=== PATIENT | male | born 1940 | race Caucasian/White ===

== ENCOUNTER 2016-10-20 20:15 | Emergency (ER) | payer MEDICARE ==
[2016-10-20] MEDS ORDERED: TETANUS/DIPHTHERIA/PERTUSSIS 0.5 ML SYRINGE IM ONE ×3 (22:28→22:40)
[2016-10-20 23:20] VITALS: BP 194/88
--- NOTE | 2016-10-20 23:40 | CT Preliminary Report ---
Exam: CT Facial Bones W/O IMPRESSION: No evidence of maxillofacial fracture. [facility] SITE ID: [id number]
--- NOTE | 2016-10-20 23:42 | CT Report ---
EXAM: CT MAXILLOFACIAL WITHOUT CONTRAST EXAM DATE: 10/20/2016 11:01 PM. CLINICAL HISTORY: Right mandibular injury. COMPARISONS: None. TECHNIQUE: Thin-section axial images were acquired of the face without contrast. Post-processing: Cor onal and sagittal reformats. Other: None. In accordance with CT protocol optimization, one or more of the following dose reduction techniques w ere utilized for this exam: automated exposure control, adjustment of mA and/or KV based on patient s ize, or use of iterative reconstructive technique. FINDINGS: Bones: No fracture or bone lesion. Temporomandibular Joints: The temporomandibular joints are symmetric and normally located. Sinuses: Normal. No mucosal thickening or fluid levels. Other: There are vascular calcifications. Patient is edentulous. There is left frontal scalp soft tis greg thickening.. IMPRESSION: No evidence of maxillofacial fracture. [facility] Referring Provider Line: [phone] SITE ID: [id number]
--- NOTE | 2016-10-20 23:45 | ED Physician Documentation ---
PD HPI Fall - Stated complaint Stated Complaint: LAC TO FOREHEAD - Chief complaint Chief Complaint: Trauma Hd/Nk - History obtained from History obtained from: Patient, Family - History of Present Illness Mechanism of injury: Other (Fell from ladder.) Fall distance: 5 to 10ft Where injury occurred: Home Timing - onset: How many minutes ago (Just prior to arrival.) Injury(ies) location: Head, Face Associated symptoms: No: LOC, Neck pain, Weakness, Paresthesias, Nausea / vomiting Similar symptoms before: Has not had sx before - Additional information Additional information: The patient is a 76-year-old male who fell about 8 feet off of a ladder, hitting his head on lumber. He denies loss of consciousness and has been ambulatory since the incident occurred. He denies nausea, vomiting, difficulty breathing, or neck pain. He presents with a scalp laceration and pain in his right mandibular region. He is uncertain of his tetanus status. Review of Systems Constitutional: denies: Fever Eyes: denies: Decreased vision Ears: denies: Tinnitus/ringing Nose: denies: Congestion Throat: reports: Other (Right mandibular pain.) Cardiac: denies: Chest pain / pressure Respiratory: denies: Dyspnea GI: denies: Abdominal Pain, Nausea, Vomiting : denies: Dysuria, Incontinent Skin: reports: Abrasion (s), Laceration (s). denies: Rash Musculoskeletal: denies: Neck pain, Back pain, Extremity pain Neurologic: reports: Head injury. denies: Focal weakness, Numbness, Headache, LOC PD PAST MEDICAL HISTORY - Past Medical History Past Medical History: Yes Cardiovascular: Hypertension Endocrine/Autoimmune: Type 2 diabetes - Past Surgical History Past Surgical History: No - Present Medications Home Medications: Ambulatory Orders Medication Instructions Recorded Confirmed HYDROcod/ACETAM 5/325 [[place] 5/325] 1 - 2 ea PO Q6H PRN #15 tablet 10/20/16 Hydrocodone/Acetaminophen 1 each PO TID 10/20/16 10/20/16 [Hydrocodone-APAP 5-300] Multivitamin [Multivitamins] 1 tab PO DAILY 10/20/16 10/20/16 Pravastatin [Pravachol] 0 mg PO DAILY 10/20/16 10/20/16 Propranolol [Inderal] mg PO 10/20/16 metFORMIN [Glucophage] mg PO BID 10/20/16 - Allergies Allergies/Adverse Reactions: Allergies Allergy/AdvReac Type Severity Reaction Status Date / Time No Known Drug Allergies Allergy Verified 10/20/16 20:27 - Social History Does the pt smoke?: No Smoking Status: Never smoker Does the pt drink ETOH?: No Does the pt have substance abuse?: No PD ED PE NORMAL - Vitals Vital signs reviewed: Yes (hypertensive) - General General: Alert and oriented X 3, Well developed/nourished - HEENT HEENT: PERRL, EOMI, Ears normal, Other (There is a 4 cm laceration at the left frontal scalp extending to the forehead. There is no bony step-off palpated. There is also right facial swelling and abrasion over the temporomandibular region. There is no dental tenderness to palpation.) - Neck Neck: No bony TTP, No JVD, Other (Cervical range of motion is intact, without tenderness.) - Cardiac Cardiac: RRR, No murmur - Respiratory Respiratory: No respiratory distress, Clear bilaterally, Other (No chest wall tenderness to palpation.) - Abdomen Abdomen: Soft, Non tender - Back Back: No spinal TTP - Derm Derm: No rash - Extremities Extremities: No tenderness to palpate, Normal ROM s pain - Neuro Neuro: Alert and oriented X 3, No motor deficit, No sensory deficit, Normal speech Results - Vitals Vitals: Vital Signs - 24 hr 10/20/16 10/20/16 10/20/16 20:23 22:19 22:26 Temperature 36.6 C 36.9 C Heart Rate 74 77 73 Respiratory 16 16 16 Rate Blood Pressure 225/103 H 195/92 H 190/96 H O2 Saturation 99 100 100 10/20/16 23:19 Temperature 36.9 C Heart Rate 69 Respiratory 15 Rate Blood Pressure 194/88 H O2 Saturation 99 Oxygen O2 Source Room air - Rads (name of study) CT facial bones (Mandible) Radiology: Prelim report reviewed, EMP read contemporaneously, See rad report ( No evidence of maxillofacial fracture.) Procedures - Laceration (location) Frontal scalp Length in cm: 4 Wound type: Linear Neurovascular status: Sensory intact, Vascular intact Anesthesia: Lidocaine 2% with epi Wound Preparation: Hibiclens, Irrigated copiously NS, Wound explored, To the base. No: FB identified Skin layer closure: [place] (7) Other: Patient tolerated well, No complications, Neurovascular intact, Dressing applied, Tetanus booster given Complexity: Simple PD MEDICAL DECISION MAKING - ED course Complexity details: reviewed results, re-evaluated patient, considered differential, d/w patient, d/w family ED course: The patient's presentation is significant for a fall off a ladder, with associated scalp laceration and facial contusion. CT scan of the facial bones, particularly the mandible, reveals no bony abnormality. The patient requested that head CT not be performed unless absolutely indicated. Since he had no loss of consciousness, and is not on anticoagulant medication, and denies headache or nausea, I felt it would be reasonable to not perform the head CT, but discussed with the patient and his family clinical signs or symptoms that should prompt reconsideration. Treatment in the emergency department included administration of tetanus booster. The scalp wound was thoroughly cleaned after administration of local anesthetic. It was repaired with priscilla. I discussed with the patient and his family appropriate wound care, timing for staple removal, as well as potentially worrisome signs or symptoms that should prompt reevaluation in the emergency department. He is being discharged with prescription for Vicodin, 15 tablets. Departure - Departure Disposition: 01 Home, Self Care Clinical Impression: Fall from ladder Qualifiers: Encounter type: initial encounter Qualified Code(s): W11.XXXA - Fall on and from ladder, initial encounter Scalp laceration Qualifiers: Encounter type: initial encounter Qualified Code(s): S01.01XA - Laceration without foreign body of scalp, initial encounter Contusion of mandibular joint area Qualifiers: Encounter type: initial encounter Qualified Code(s): S00.83XA - Contusion of other part of head, initial encounter Hypertension Qualifiers: Hypertension type: unspecified Qualified Code(s): I10 - Essential (primary) hypertension Condition: Stable Instructions: ED Head Injury Closed, ED Laceration Scalp Stitch Or Stap, ED Contusion Face Follow-Up: Olivia Ashley PA-C [Primary Care Provider] - Prescriptions: HYDROcod/ACETAM 5/325 [[place] 5/325] 1 - 2 ea PO Q6H PRN #15 tablet PRN Reason: Pain Comments: Apply ice pack to the sore areas intermittently for the next 4 days. Keep the wound clean, and apply antibiotic ointment daily. You can use ibuprofen, up to 800 mg 3 times daily if needed for pain. Follow-up for removal of priscilla in about 12 days. Return to the emergency department if you develop increasing headache, persistent vomiting, or otherwise worsening symptoms. Discharge Date/Time: 10/20/16 23:59
== END 2016-10-20 23:59 | disposition home or self-care (01) ==
LOC: ED 20:15
DX: S01.01XA Laceration without foreign body of scalp, initial encounter (principal); W11.XXXA Fall on and from ladder, initial encounter; Y92.019 Unspecified place in single-family (private) house as the place of occurrence of the external cause; Z23 Encounter for immunization; I10 Essential (primary) hypertension; E11.9 Type 2 diabetes mellitus without complications; Z79.84 Long term (current) use of oral hypoglycemic drugs
CPT/HCPCS: 12002; 70486; 90471; 99283

== ENCOUNTER 2018-05-18 08:00 | Outpatient (CLI) | payer MEDICARE ==
[2018-05-18 15:00] LABS: MUDS CUTOFF CONCENTRATIONS CUTOFF CONC BELOW:
[2018-05-18 15:20] LABS: AMPHETAMINE SCREEN,URINE NEGATIVE (NEGATIVE); BENZODIAZEPINES SCREEN, URINE NEGATIVE (NEGATIVE); COCAINE SCREEN URINE NEGATIVE (NEGATIVE); METHADONE SCREEN, URINE NEGATIVE (NEGATIVE); METHAMPHETAMINES SCREEN, URINE NEGATIVE (NEGATIVE); OPIATE SCREEN, URINE POSITIVE (NEGATIVE); OXYCODONE SCREEN, URINE NEGATIVE (NEGATIVE); PROPOXYPHENE SCREEN, URINE NEGATIVE (NEGATIVE); TRICYCLIC ANTIDEPRESSANT,URINE NEGATIVE (NEGATIVE)
== END 2018-05-18 23:59 | disposition home or self-care (01) ==
LOC: LAB.R 08:00
PROVIDERS: ATTEND Internal Medicine
DX: Z51.81 Encounter for therapeutic drug level monitoring (principal); M54.5 Low back pain; G89.29 Other chronic pain; Z79.899 Other long term (current) drug therapy
CPT/HCPCS: 80306

== ENCOUNTER 2019-07-04 08:52 | Outpatient (CLI) | payer MEDICARE ==
--- NOTE | 2019-07-04 13:32 | CARDIAC PROCEDURE NOTE ---
DATE OF SERVICE: 07/04/2019 Physician: Lizette Garcia MD, [facility] INDICATION: Dyspnea on exertion. CARDIAC RISK FACTORS 1. Male gender. 2. Diabetes. 3. Hypertension. After signing informed consent, patient underwent a Tate-protocol treadmill stress test with nuclear myocardial perfusion imaging. The patient's resting heart rate was 52 (he did not take the Propranolol this morning, but took his pid doses yesterday). Therefore, a Lexiscan pharmaceutical stress test was offered to the patient, since he may not be able to achieve target HR with exercise (as per the order from Luna Nino NP). However, patient had drank some coffee that morning, which prevents us from using Lexiscan, since caffeine is the natural antidote to Lexiscan. RESTING HEART RATE: 52. PEAK HEART RATE: 87 (61% predicted maximum heart rate for age). RESTING BLOOD PRESSURE: 126/77. PEAK BLOOD PRESSURE: 126/62. Patient exercised for 4 minutes and 40 seconds on a Tate-protocol treadmill. Patient had no chest pain. He did describe significant shortness of breath and fatigue and asked for the exercise to stop it. He reported his perceived exertion at 17/20 on the Subhash scale ("exhaustion"). Oxygen saturation remained 95-98% throughout the entire test, on room air. Heart rate response was blunted due to being on Propranolol, even skipping this morning's dose. Blood pressures response was abnormal. The blood pressure dropped from rest of 126/77 to 103/60 in the first stage, then dain slightly to 110/60 in the second stage, and at completion dain to 126/64. If patient has orthostatic hypotension and Parkinson's disease, a drop in blood pressure may have been expected. Patient had a tremor of both his upper extremities and his head throughout the entire test, but he did not call his diagnosis Parkinson's, however. RESTING EKG: Sinus bradycardia, otherwise within normal limits. EKG AT PEAK: New T-wave flattening in leads V5 and V6. These reverted to baseline in 34 seconds of recovery. SUMMARY: 1. Bradycardic EKG at rest, otherwise normal. 2. Lateral T-wave abnormalities develop by EKG criteria, even at this inadequate heart rate response, and suggest ischemia. 3. Abnormal blood pressure response (see above). 4. Patient did have marked dyspnea and exhaustion at peak, but oxygen saturation remained adequate throughout the test. 5. Nuclear images reported separately. 6. This patient's cardiac risk based on all the above: Moderate - High. RECOMMENDATIONS: 1. If the nuclear scan reveals no ischemia, it may be due to not achieving an adequate peak HR. In that case, a repeat test with pharmacologic stressing is necessary to evaluate for cardiac ischemia. cc: RAMOS Easley TD: 07/04/2019 12:32 MTDD
--- NOTE | 2019-07-05 10:31 | Nuclear Medicine Report ---
Reason: DYSPNEA Procedure Date: 07/04/2019 Accession Number: [id number] / [id number] Procedure: NM - Myocardial Perfusion STR/RST CPT Code: Final Report FULL RESULT: EXAM: SINGLE-ISOTOPE EXERCISE STRESS TEST. SINGLE-ISOTOPE AND ONE-DAY REST/STRESS MYOCARDIAL PERFUSION SCANS WITH TOMOGRAPHIC IMAGING, QUANTITATIVE ANALYSIS, WALL MOTION ANALYSIS AND CALCULATION OF EJECTION FRACTION. EXAM DATE: 07/04/2019 09:40 AM. CLINICAL HISTORY: DYSPNEA on exertion. Chest pain. COMPARISON: None. TECHNIQUE: A rest myocardial perfusion scan was done with tomography after the intravenous administration of 10.4 mCi Tc-99m sestamibi. After an appropriate delay, a treadmill exercise stress was performed according to department protocol. The patient exercised for 4 minutes and 40 seconds. The maximum heart rate was 87 bpm, which was 61% of the maximum predicted heart rate of 143 bpm. At approximately peak heart rate, 43.4 mCi of Tc-99m sestamibi was injected for stress myocardial perfusion scan. Motion correction was applied when appropriate. Gated tomographic images were obtained for wall motion analysis and computation of left ventricular ejection fraction. FINDINGS: Perfusion images: Left ventricular chamber size appears normal at rest and unchanged at stress. No convincing fixed perfusion deficits. No convincing reversible perfusion deficits. SSS 3, SRS 0, SDS 3. Gated images: No convincing focal wall motion abnormality. Calculated left ventricular EDV 69 mL, ESV 15 mL. The left ventricular ejection fraction is estimated at 78% (normal > 50%). IMPRESSION: 1. Submaximal exercise heart rate, may reduce the sensitivity of the study for myocardial ischemia. 2. No convincing reversible perfusion deficits to indicate stress-induced ischemia. 3. No convincing fixed perfusion deficits. 4. Left ventricular ejection fraction of 78% (normal > 50%). Please correlate findings with stress ECG tracings and procedure notes. [facility]
== END 2019-07-04 08:53 | disposition home or self-care (01) ==
LOC: DI 08:52
PROVIDERS: ATTEND Nurse Practitioner Family
DX: R06.09 Other forms of dyspnea (principal); R00.1 Bradycardia, unspecified; I10 Essential (primary) hypertension; E11.9 Type 2 diabetes mellitus without complications
CPT/HCPCS: 78452; 93017; A9500

== ENCOUNTER 2019-09-05 15:09 | Outpatient (CLI) | payer MEDICARE ==
[2019-09-05 15:24] LABS: HGB - HEMOGLOBIN 12.2 g/dL (14.0-18.0); MEAN CORPUSCULAR HGB CONC 32.6 g/dL (32.0-36.0); MEAN CORPUSCULAR VOLUME 91.9 fL (80.0-94.0); MEAN PLATELET VOLUME 9.7 fL (7.4-11.4); RED BLOOD COUNT 4.07 10^6/uL (4.70-6.10); RED CELL DISTRIBUTION WIDTH 13.3 % (12.0-15.0); WHITE BLOOD COUNT 7.7 x10^3/uL (4.8-10.8)
[2019-09-05 15:57] LABS: ALBUMIN 3.8 g/dL (3.2-5.5); ALBUMIN/GLOBULIN RATIO 1.2 (1.0-2.2); ALKALINE PHOSPHATASE 81 IU/L (42-121); ALT ALANINE AMINOTRANSFERASE 15 IU/L (10-60); AST ASPARTATE AMINOTRANSFERASE 13 IU/L (10-42); BILIRUBIN,TOTAL 1.3 mg/dL (0.2-1.0); BUN - BLOOD UREA NITROGEN 45 mg/dL (6-20); CARBON DIOXIDE - CO2 25 mmol/L (21-32); CHLORIDE 107 mmol/L (101-111); CHOL/HDL RATIO 5.9 (<5.0); CHOLESTEROL 208 mg/dL; CREATININE 1.8 mg/dL (0.6-1.2); GLUCOSE 175 mg/dL (70-100); HDL CHOLESTEROL 35 mg/dL; LDL CHOLESTEROL,CALCULATED 140 mg/dL; SODIUM 138 mmol/L (135-145); VLDL CHOLESTEROL 33 mg/dL
== END 2019-09-05 15:10 | disposition home or self-care (01) ==
LOC: LAB 15:09
PROVIDERS: ATTEND Internal Medicine Cardiovascular Disease
DX: R06.00 Dyspnea, unspecified (principal); Z79.899 Other long term (current) drug therapy; I10 Essential (primary) hypertension
CPT/HCPCS: 36415; 80053; 80061; 83721; 84443; 85027

== ENCOUNTER 2020-03-06 10:52 | Emergency (ER) | payer MEDICARE ==
[2020-03-06 11:43] LABS: BASOPHILS # (AUTO) 0.1 10^3/uL (0.0-0.1); BASOPHILS % (AUTO) 0.3 %; EOSINOPHILS % (AUTO) 0.1 %; HGB - HEMOGLOBIN 13.1 g/dL (14.0-18.0); LYMPHOCYTES % (AUTO) 5.5 %; MEAN CORPUSCULAR HEMOGLOBIN 30.4 pg (27.0-31.0); MEAN CORPUSCULAR HGB CONC 34.5 g/dL (32.0-36.0); MEAN CORPUSCULAR VOLUME 88.2 fL (80.0-94.0); MEAN PLATELET VOLUME 10.4 fL (7.4-11.4); MONOCYTES # (AUTO) 1.4 10^3/uL (0.0-1.0); MONOCYTES % (AUTO) 7.6 %; NEUTROPHILS # (AUTO) 15.4 10^3/uL (1.5-6.6); PLT - PLATELET COUNT 164 10^3/uL (130-450); RED BLOOD COUNT 4.31 10^6/uL (4.70-6.10); RED CELL DISTRIBUTION WIDTH 13.6 % (12.0-15.0); WHITE BLOOD COUNT 18.3 x10^3/uL (4.8-10.8)
[2020-03-06 11:54] LABS: ALBUMIN 3.5 g/dL (3.2-5.5); BILIRUBIN,TOTAL 2.7 mg/dL (0.2-1.0); CALCIUM 9.4 mg/dL (8.5-10.3); CREATININE 3.5 mg/dL (0.6-1.2); TOTAL PROTEIN 7.1 g/dL (6.7-8.2)
--- NOTE | 2020-03-06 12:06 | XRAY Report ---
PROCEDURE: Chest 1 View X-Ray INDICATIONS: Chest pain TECHNIQUE: One view of the chest was acquired. COMPARISON: None. FINDINGS: Surgical changes and devices: None. Lungs and pleura: Lung bones are diminished with mild eventration of the right hemidiaphragm. Minima l streaky bibasilar opacities compatible with atelectasis. No focal consolidations. No pleural effusi ons or pneumothorax. Mediastinum: Prominent perihilar contours, particularly in the right infrahilar region likely related to prominent central vasculature. Heart size is normal. Bones and chest wall: No suspicious bony lesions. Overlying soft tissues appear unremarkable. IMPRESSION: 1. Slightly diminished lung volumes with minimal streaky bibasilar opacities which are favored to rep resent atelectasis. 2. Prominent perihilar contours, more pronounced on the right likely related to prominent central vas culature and probably accentuated secondary to portable technique and diminished lung volumes. Consid er dedicated upright PA and lateral views of the chest when patient is able. Differential also includ es perihilar adenopathy. 3. Otherwise, no acute cardiopulmonary abnormalities. Reviewed by: Alvin Roman MD on 03/06/2020 11:04 AM [place] Approved by: Alvin Roman MD on 03/06/2020 11:04 AM [facility] Station ID: [id number]
[2020-03-06] MEDS ORDERED: SODIUM CHLORIDE 0.9% 1,000 ML IV STA ×3 (12:33→15:23)
--- NOTE | 2020-03-06 12:33 | ED Physician Documentation ---
PD HPI ABD PAIN - Stated complaint Stated Complaint: CHEST/ABD PX - Chief complaint Chief Complaint: Cardiac - History obtained from History obtained from: Patient - History of Present Illness Timing - onset: Yesterday Timing - duration: Days (2) Timing - details: Gradual onset Pain level max: 7 Pain level now: 5 Quality: Cramping, Aching, Pain Location: RUQ Radiation: No: Chest, , Lower back, Left flank, Left shoulder, Right flank, Right shoulder, Upper back Improved by: Other (nothing) Worsened by: Moving, Palpation Associated symptoms: No: Fever, Nausea, Vomiting, Hematemesis, Diarrhea, Constipation, Melena, Hematochezia, Dysuria Recently seen: Not recently seen Review of Systems Ten Systems: 10 systems reviewed and negative Constitutional: denies: Fever, Chills Nose: denies: Rhinorrhea / runny nose, Congestion GI: denies: Vomiting Skin: denies: Rash Musculoskeletal: denies: Neck pain, Back pain Neurologic: denies: Headache PD PAST MEDICAL HISTORY - Past Medical History Past Medical History: Yes Cardiovascular: Hypertension, High cholesterol Endocrine/Autoimmune: Type 2 diabetes : Benign prostate hypertrophy, Renal insuffiency Musculoskeletal: Osteoarthritis Other Past Medical History: Nerve disorder. - Past Surgical History Past Surgical History: No - Present Medications Home Medications: Ambulatory Orders Medication Instructions Recorded Confirmed Pravastatin [Pravachol] 40 mg PO DAILY 10/20/16 03/06/20 Propranolol [Inderal] 80 mg PO TID 10/20/16 03/06/20 metFORMIN [Glucophage] 1,000 mg PO BID 10/20/16 03/06/20 HYDROcod/ACETAM 5/325 [[place] 5/325] 1 tab PO BID PRN 02/22/18 03/06/20 Losartan Potassium 25 mg PO BID 02/22/18 03/06/20 Tamsulosin HCl [Flomax] 0.8 mg PO DAILY 02/22/18 03/06/20 amLODIPine [Norvasc] 5 mg PO BID 02/22/18 03/06/20 - Allergies Allergies/Adverse Reactions: Allergies Allergy/AdvReac Type Severity Reaction Status Date / Time No Known Drug Allergies Allergy Verified 03/06/20 11:15 - Social History Does the pt smoke?: No Smoking Status: Never smoker Does the pt drink ETOH?: No Does the pt have substance abuse?: No - Immunizations Immunizations are current?: Yes - POLST Patient has POLST: No PD ED PE NORMAL - Vitals Vital signs reviewed: Yes - General General: Alert and oriented X 3, No acute distress - HEENT HEENT: Moist mucous membranes - Neck Neck: Supple, no meningeal sign - Cardiac Cardiac: RRR - Respiratory Respiratory: No respiratory distress, Clear bilaterally - Abdomen Abdomen: Soft, Non distended, Other (TTP RUQ and R flank. no peritoneal signs.) - Back Back: No CVA TTP, No spinal TTP - Derm Derm: Warm and dry - Extremities Extremities: No edema - Neuro Neuro: Alert and oriented X 3 - Psych Psych: Normal mood, Normal affect Results - Vitals Vitals: Vital Signs - 24 hr 03/06/20 03/06/20 03/06/20 11:12 11:26 12:11 Temperature 36.6 C Heart Rate 69 67 67 Respiratory 23 20 19 Rate Blood Pressure 136/80 H 124/61 100/63 O2 Saturation 98 98 97 03/06/20 03/06/20 03/06/20 13:50 15:07 17:16 Temperature 36.9 C Heart Rate 70 71 74 Respiratory 12 25 H 20 Rate Blood Pressure 133/73 H 114/47 L 120/62 O2 Saturation 100 99 100 Oxygen O2 Source Room air - Labs Labs: Laboratory Tests 03/06/20 03/06/20 03/06/20 10:20 10:20 10:20 WBC 18.3 H RBC 4.31 L Hgb 13.1 L Hct 38.0 L MCV 88.2 MCH 30.4 MCHC 34.5 RDW 13.6 Plt Count 164 MPV 10.4 Neut # (Auto) 15.4 H Lymph # (Auto) 1.0 L [place] # (Auto) 1.4 H Eos # (Auto) 0.0 Baso # (Auto) 0.1 Absolute Nucleated RBC 0.00 Nucleated RBC % 0.0 Sodium 136 Potassium 4.4 Chloride 97 L Carbon Dioxide 23 Anion Gap 16.0 H BUN 53 H Creatinine 3.5 H Estimated GFR (MDRD) 17 L Glucose 194 H Calcium 9.4 Total Bilirubin 2.7 H AST 35 ALT 46 Alkaline Phosphatase 98 Troponin I High Sens 49.4 H* Total Protein 7.1 Albumin 3.5 Globulin 3.6 Albumin/Globulin Ratio 1.0 Lipase 21 L Urine Color Urine Clarity Urine pH Ur Specific [place] Urine Protein Urine Glucose (UA) Urine Ketones Urine Occult Blood Urine Nitrite Urine Bilirubin Urine Urobilinogen Ur Leukocyte Esterase Urine RBC Urine WBC Ur Squamous Epith Cells Amorphous Sediment Urine Bacteria Urine Casts Urine Mucus Ur Microscopic Review Urine Culture Comments 03/06/20 03/06/20 03/06/20 10:20 14:25 15:28 WBC RBC Hgb Hct MCV MCH MCHC RDW Plt Count MPV Neut # (Auto) Lymph # (Auto) [place] # (Auto) Eos # (Auto) Baso # (Auto) Absolute Nucleated RBC Nucleated RBC % Sodium Potassium Chloride Carbon Dioxide Anion Gap BUN Creatinine Estimated GFR (MDRD) Glucose Calcium Total Bilirubin AST ALT Alkaline Phosphatase Troponin I High Sens Cancelled 37.6 H* Total Protein Albumin Globulin Albumin/Globulin Ratio Lipase Urine Color DARK YELLOW Urine Clarity CLEAR Urine pH 5.0 Ur Specific [place] >=1.030 H Urine Protein 30 H Urine Glucose (UA) NEGATIVE Urine Ketones NEGATIVE Urine Occult Blood NEGATIVE Urine Nitrite NEGATIVE Urine Bilirubin NEGATIVE Urine Urobilinogen 0.2 (NORMAL) Ur Leukocyte Esterase NEGATIVE Urine RBC 0-5 Urine WBC 4-5 Ur Squamous Epith Cells FEW Squamous Amorphous Sediment Few Urine Bacteria Rare Urine Casts 11-25 Hyaline Casts Urine Mucus Few Strands Ur Microscopic Review INDICATED Urine Culture Comments NOT INDICATED 03/06/20 15:28 WBC RBC Hgb Hct MCV MCH MCHC RDW Plt Count MPV Neut # (Auto) Lymph # (Auto) [place] # (Auto) Eos # (Auto) Baso # (Auto) Absolute Nucleated RBC Nucleated RBC % Sodium 136 Potassium 4.2 Chloride 99 L Carbon Dioxide 23 Anion Gap 14.0 H BUN 52 H Creatinine 3.2 H Estimated GFR (MDRD) 19 L Glucose 189 H Calcium 8.8 Total Bilirubin AST ALT Alkaline Phosphatase Troponin I High Sens Total Protein Albumin Globulin Albumin/Globulin Ratio Lipase Urine Color Urine Clarity Urine pH Ur Specific [place] Urine Protein Urine Glucose (UA) Urine Ketones Urine Occult Blood Urine Nitrite Urine Bilirubin Urine Urobilinogen Ur Leukocyte Esterase Urine RBC Urine WBC Ur Squamous Epith Cells Amorphous Sediment Urine Bacteria Urine Casts Urine Mucus Ur Microscopic Review Urine Culture Comments - Rads (name of study) CT abd/pelvis Radiology: Prelim report reviewed, EMP read contemporaneously, See rad report RUQ US Radiology: Prelim report reviewed, EMP read contemporaneously, See rad report PD MEDICAL DECISION MAKING - ED course Complexity details: reviewed results, re-evaluated patient, considered differential, d/w patient, d/w family ED course: 80-year-old male presents to the emergency department with right upper quadrant abdominal pain and right shoulder pain. Symptoms concerning for bladder disease. Questionable cholecystitis on CT scan. No evidence of cholelithiasis or cholecystitis on ultrasound however. No fever. Does have a leukocytosis and some acute renal insufficiency. Given IV fluids. Pain resolved in the emergency department. Creatinine is decreasing after IV fluids. He does not wish to stay in the hospital at this time. We will have him follow-up closely with his doctor for further care. He will need his creatinine rechecked early next week. Will likely need a HIDA scan as well. Counseled the patient and his family that if he has worsening pain, fever or other new or worrisome symptoms they should return immediately to the emergency department. Patient and family counseled regarding signs and symptoms for which I believe and urgent re- evaluation would be necessary. Patient with good understanding of and agreement to plan and is comfortable going home at this time This document was made in part using voice recognition software. While efforts are made to proofread this document, sound alike and grammatical errors may occur. CT Abd/pelvis: IMPRESSION: 1. Right renal cysts as above. No obstructing renal stone or ureteral stone. No hydronephrosis. Normal-appearing bilateral ureters. Mild diffuse bladder wall thickening with enlarged prostate gland and mass effect of floor of urinary bladder is concerning for chronic urinary outlet obstruction. 2. Tiny gallstones. Gallbladder is distended with questionable wall thickening and edema, acute cholecystitis cannot be excluded, suggest clinical correlation. No biliary ductal dilatation RUQ US: IMPRESSION: No sonographic evidence of cholelithiasis or cholecystitis. If there is continued clinical concern for cholecystitis, a nuclear medicine HIDA scan should be considered for further evaluation. Departure - Departure Disposition: Home, Self Care Clinical Impression: Dehydration, Renal insufficiency Abdominal pain Qualifiers: Abdominal location: unspecified location Qualified Code(s): R10.9 - Unspecified abdominal pain Condition: Good Instructions: ED Abdominal Pain Unkn Cause Follow-Up: Adrian Jacome MD [Primary Care Provider] - Within 3 Days Comments: You need to see his doctor on Monday or Monday. He needs his creatinine rechecked as well as a CBC rechecked early next week. Return sooner if he worsens including worsening pain, fever or other new or worsening symptoms. The cause of his symptoms is unclear today. He could have gallbladder dysfunction, this would be seen on something such as a HIDA scan, which is usually ordered as an outpatient by his doctor. Discharge Date/Time: 03/06/20 17:22
--- NOTE | 2020-03-06 13:20 | CT Report ---
PROCEDURE: Abdomen/Pelvis WO INDICATIONS: R flank pain TECHNIQUE: Noncontrast 5 mm thick sections acquired from the diaphragms to the symphysis. 5 mm coronal and sagi ttal reformats were then performed. For radiation dose reduction, the following was used: automated exposure control, adjustment of mA and/or kV according to patient size. COMPARISON: Renal ultrasound dated 03/11/2015. FINDINGS: Image quality: Excellent. ABDOMEN: Lung bases: Dependent atelectasis in posterior aspect of bilateral lower lung ro are seen. Heart size is enlarged. Moderate amount of atherosclerotic calcifications are noted. Solid organs: Liver and spleen are normal in size. Gallbladder is distended. Questionable gallbladd er wall edema is noted. Tiny calcification in dependent portion of gallbladder lumen is noted suggest efrain of tiny gallstones. No gross biliary ductal dilatation. Pancreas is normal in contours. No adren al nodules. Bilateral kidneys are normal in size. Right upper pole renal cyst is seen measures 3 cm i n size. No hydronephrosis. No perinephric fat stranding. No calcified ureteral stone is seen. Peritoneum and bowel: Unenhanced bowel loops demonstrate normal wall thickness and caliber. No free fluid or air. Appendix is visualized and is within normal limits. Mild colonic diverticulosis is se en, no CT evidence of acute diverticulitis. Nodes and vessels: No retroperitoneal or mesenteric adenopathy by size criteria. Aorta and inferior vena cava are normal in caliber. Miscellaneous: No ventral hernias. PELVIS: Genitourinary: There is mild diffuse bladder wall thickening, no discrete bladder wall mass. Enlarged prostate gland with mass effect the floor of urinary bladder is seen. Multiple phleboliths are noted in lower pelvis. Miscellaneous: No inguinal hernias or adenopathy. Bones: No suspicious bony lesions. No vertebral body compression fractures. Scoliosis of thoracolu mbar spine is seen. Degenerative disc disease throughout lower thoracic and lumbar spine is seen. IMPRESSION: 1. Right renal cysts as above. No obstructing renal stone or ureteral stone. No hydronephrosis. Zeina l-appearing bilateral ureters. Mild diffuse bladder wall thickening with enlarged prostate gland and mass effect of floor of urinary bladder is concerning for chronic urinary outlet obstruction. 2. Tiny gallstones. Gallbladder is distended with questionable wall thickening and edema, acute igor cystitis cannot be excluded, suggest clinical correlation. No biliary ductal dilatation. Reviewed by: Uriel Walters MD on 03/06/2020 1:18 PM PST Approved by: Uriel Walters MD on 03/06/2020 1:18 PM PST Station ID: [id number]
--- NOTE | 2020-03-06 14:46 | Ultrasound Report ---
PROCEDURE: Abdomen Limited INDICATIONS: RUQ abd pain TECHNIQUE: Real-time focused scanning was performed of the abdomen, with image documentation. COMPARISON: CT abdomen and pelvis 03/06/2020. FINDINGS: Tiny gallstone identified by recent CT scan is not seen by ultrasound imaging. No gallbladder wall th ickening. Gallbladder wall measures 2.5 mm. No pericholecystic fluid. No sonographic Contreras sign. Biliary tree is nondilated. Common bile duct measures 2.3 mm. Right kidney measures 9.5 cm. Small right renal cyst is noted. Right kidney is otherwise sonographica lly normal. IMPRESSION: No sonographic evidence of cholelithiasis or cholecystitis. If there is continued clinical concern fo r cholecystitis, a nuclear medicine HIDA scan should be considered for further evaluation. Reviewed by: Arianna Braga MD, PhD on 03/06/2020 2:44 PM PST Approved by: Arianna Braga MD, PhD on 03/06/2020 2:44 PM PST Station ID: [id number]
[2020-03-06 14:59] LABS: BILIRUBIN,URINE NEGATIVE (NEGATIVE); GLUCOSE, URINE (UA) NEGATIVE (NEGATIVE); KETONES,URINE (UA) NEGATIVE (NEGATIVE); LEUKOCYTE ESTERASE, URINE NEGATIVE (NEGATIVE); NITRITE,URINE NEGATIVE (NEGATIVE); OCCULT BLOOD,URINE NEGATIVE (NEGATIVE); PROTEIN,URINE 30 mg/dL (NEGATIVE); UROBILINOGEN,URINE 0.2 (NORMAL) E.U./dL (NORMAL)
[2020-03-06 15:03] LABS: CLARITY,URINE CLEAR (CLEAR)
[2020-03-06 15:12] LABS: RBC,URINE 0-5 /HPF (0-5); SQUAMOUS EPITHELIAL CELL,UR FEW Squamous (<= Few)
[2020-03-06 15:26] LABS: AMORPHOUS SEDIMENT,UR Few /LPF; BACTERIA,URINE Rare /HPF (None Seen); CASTS, URINE 11-25 Hyaline Casts /LPF; MUCUS,URINE Few Strands
[2020-03-06 16:05] LABS: CALCIUM 8.8 mg/dL (8.5-10.3); CREATININE 3.2 mg/dL (0.6-1.2)
[2020-03-06 17:17] VITALS: BP 120/62
== END 2020-03-06 17:22 | disposition home or self-care (01) ==
LOC: ED 10:52
DX: E86.0 Dehydration (principal); N28.9 Disorder of kidney and ureter, unspecified; R10.11 Right upper quadrant pain; R07.9 Chest pain, unspecified; Z20.822 Contact with and (suspected) exposure to COVID-19; M25.511 Pain in right shoulder; D72.829 Elevated white blood cell count, unspecified; N28.1 Cyst of kidney, acquired; N40.0 Benign prostatic hyperplasia without lower urinary tract symptoms; I10 Essential (primary) hypertension; E11.9 Type 2 diabetes mellitus without complications; Z79.84 Long term (current) use of oral hypoglycemic drugs
CPT/HCPCS: 36415; 71045; 74176; 76705; 80048; 80053; 81001; 83690; 84484; 85025; 93005; 96360; 99284; 99285; U0004; 81003; 87086

== ENCOUNTER 2020-03-20 08:46 | Outpatient (CLI) | payer MEDICARE ==
[2020-03-20] MEDS ORDERED: MORPHINE 2 MG/ML CARPUJECT IVP STA (11:01)
[2020-03-20] MEDS ORDERED: MORPHINE 2 MG/ML CARPUJECT ONE (11:19)
--- NOTE | 2020-03-20 13:17 | Nuclear Medicine Report ---
PROCEDURE: Hepatobiliary HIDA w/o Rx INDICATIONS: RUQ PAIN RADIOPHARMACEUTICAL: 4.9 mCi Tc-99m meprofenin i.v. and 2.0 mg morphine sulfate IV. TECHNIQUE: Following intravenous administration of Tc-99m meprofenin, sequential anterior abdominal images were obtained through 60 minutes. Additional imaging was performed for 30 minutes after morphi ne sulfate. COMPARISON: Ultrasound abdomen limited, 03/06/[address] abdomen and pelvis with contrast 03/06/2020. FINDINGS: Biliary scan: There is normal tracer uptake and excretion by the liver. There is normal visualizati on of the intrahepatic ducts, common bile duct, and normal tracer transit into the duodenum. There is no tracer in of gallbladder pseudocysts first 60 minutes. After Morphine sulfate administration, th e patient was imaged for additional 30 minutes.: There is continued absence of tracer filling of gal lbladder IMPRESSION: 1. Absence of tracer filling of gallbladder consistent with cystic duct obstruction. The scintigraphi c finding is consistent with acute cholecystitis. A message was left for Dr. Jacome in his office. Reviewed by: Carlo Damon MD on 03/20/2020 1:15 PM PST Approved by: Carlo Damon MD on 03/20/2020 1:15 PM PST Station ID: [id number]
== END 2020-03-20 08:47 | disposition home or self-care (01) ==
LOC: DI 08:46
PROVIDERS: ATTEND Family Medicine
DX: R10.11 Right upper quadrant pain (principal); K82.0 Obstruction of gallbladder
CPT/HCPCS: 78226

== ENCOUNTER 2020-09-21 10:39 | Day surgery (SDC) | payer MEDICARE ==
[~2020-09-21 10:39] MED LIST: ceFAZolin 2 GM/50 ML 2 GM/50 ML BAG IV ONE
[2020-09-21] MEDS ORDERED: LACTATED RINGERS 1,000 ML IV ONE ×2 (10:48→16:09)
[2020-09-21] MEDS ORDERED: BUPIVACAINE 0.5% PF 30 ML VIAL ONE (10:52)
--- NOTE | 2020-09-21 11:33 | ANESTHESIA ---
Pre-Anesthesia VS, & Labs - Diagnosis symptomatic cholelithiasis - Procedure laparoscopic cholecystectomy, possible IOC Vital Signs: Temp Pulse Resp BP Pulse Ox 36.1 C L 57 L 18 164/81 H 98 09/21/20 10:52 09/21/20 10:52 09/21/20 10:52 09/21/20 10:52 09/21/20 10:52 Height: 5 ft 2 in Weight (kg): 74 kg Body Mass Index: 29.8 BMI Classification: Overweight - NPO >8 hours Last Fluid Intake: sips with meds this am - Lab Results Current Lab Results: Laboratory Tests 09/21/20 11:10: POC Whole Bld Glucose 206 H Lab results reviewed: Yes Home Medications and Allergies Pravastatin [Pravachol] 40 mg PO DAILY 10/20/16 Propranolol [Inderal] 80 mg PO TID 10/20/16 metFORMIN [Glucophage] 500 mg PO BID 10/20/16 Losartan Potassium 25 mg PO BID 02/22/18 Tamsulosin HCl [Flomax] 0.8 mg PO DAILY 02/22/18 amLODIPine [Norvasc] 5 mg PO BID 02/22/18 Allergies/Adverse Reactions: Allergies Allergy/AdvReac Type Severity Reaction Status Date / Time No Known Drug Allergies Allergy Verified 03/06/20 11:15 Anes History & Medical History - Anesthetic History Anesthesia Complications: reports: No previous complications Family history of Anesthesia Complications: Denies Family history of Malignant Hyperthermia: Denies - Medical History Cardiovascular: reports: Hypertension, High cholesterol Pulmonary: reports: Sleep apnea Gastrointestinal: reports: Cholelithiasis Urinary: reports: Benign prostate hypertrophy, Renal insuffiency Musculoskeletal: reports: Chronic back pain Endocrine/Autoimmune: reports: Type 2 diabetes Blood Disorders: reports: Anemia Skin: reports: Other Smoking Status: Never smoker Exam General: Alert, Oriented x3, Cooperative Dental: Dentures full Upper, Dentures full Lower Mouth Opening: Greater than 4 Fingerbreadths Neck Mobility: Normal Mallampati classification: I Respiratory: Lungs clear, Normal breath sounds, No respiratory distress Cardiovascular: Regular rate Neurological: Normal speech Mental/Cognitive Status: Alert/Oriented X3, Normal for patient Cognitive Status: Within normal limits Plan Anesthesia Type: General Consent for Procedure(s) Verified and Reviewed: Yes Code Status: Attempt Resuscitation ASA classification: 2-Mild systemic disease Is this case an emergency?: No
[2020-09-21] MEDS ORDERED: ATROPINE ABBOJECT 1 MG/10 ML SYRINGE IVP PRN (11:38)
[2020-09-21] MEDS ORDERED: METOCLOPRAMIDE 10 MG/2 ML VIAL IVP PRN (11:38)
[2020-09-21] MEDS ORDERED: ePHEDrine 50 MG/ML VIAL IVP PRN (11:38)
[2020-09-21] MEDS ORDERED: MORPHINE 2 MG/ML CARPUJECT IVP PRN (11:38)
[2020-09-21] MEDS ORDERED: ONDANSETRON 4 MG/2 ML VIAL IVP PRN (11:38)
[2020-09-21] MEDS ORDERED: fentaNYL 100 MCG/2 ML VIAL IVP PRN (11:38)
[2020-09-21] MEDS ORDERED: NALOXONE 0.4 MG/ML VIAL IVP PRN (11:38)
[2020-09-21] MEDS ORDERED: LACTATED RINGERS 1,000 ML IV SCH ×2 (12:00→17:00)
[2020-09-21] MEDS ORDERED: PROPOFOL 200 MG/20 ML VIAL IVP ONE (12:55)
[2020-09-21] MEDS ORDERED: ROCURONIUM 50 MG/5 ML VIAL ONE ×2 (12:55→14:55)
[2020-09-21] MEDS ORDERED: LIDOCAINE-MPF 2% 5 ML VIAL ONE (12:55)
[2020-09-21] MEDS ORDERED: fentaNYL 100 MCG/2 ML VIAL ONE (12:55)
[2020-09-21] MEDS ORDERED: NEOSTIGMINE 1 MG/1 ML 10 ML MDV ONE (13:04)
[2020-09-21] MEDS ORDERED: GLYCOPYRROLATE 1 MG/5 ML VIAL ONE (13:04)
[2020-09-21] MEDS ORDERED: BUPIVACAINE 0.5% PF 30 ML VIAL INFIL ONE (13:37)
[2020-09-21] MEDS ORDERED: ePHEDrine 50 MG/ML VIAL IVP ONE (14:14)
--- NOTE | 2020-09-21 16:04 | OPERATIVE REPORT ---
Operative Report - General Procedure Date: 09/21/20 Planned Procedure: Laparoscopic cholecystectomy, possible open cholecystectomy, possible intraoperative cholangiogram, possible common bile duct exploration Pre-Op Diagnosis: Gallbladder obstruction, chronic cholecystitis, lysis of adhesions Procedure Performed: Open cholecystectomy converted from laparoscopic cholecystectomy, umbilical herniorrhaphy Post Op Diagnosis: Thoroughly scarred and shrunken gallbladder with multiple adhesions making - Procedure Note Primary Surgeon: Lionel Easton MD Anesthesia Provider: Narda Hadley CRNA Anesthesia Technique: General ET tube, Local (30 ML of half percent Marcaine) IV Fluids (mL): 1,500 Estimated Blood Loss (mL): 250 Drain/Tube Type: Rojas drain, Other (19 Fr placed in subhepatic space) Indications: Chronic cholecystitis, gallbladder obstruction Findings: Dense adhesions of the liver to the anterior abdominal wall, of the omentum to the liver, of the colon to the gallbladder, of the omentum to the gallbladder, of the duodenum to the gallbladder Scarred shrunken gallbladder filled with mucus Umbilical hernia Complications: None. - Other Other Information/Narrative: After verbal and written informed consent was obtained detailing the operation, the alternatives to the operation including no operation, risks of infection, bleeding requiring transfusion with its risks, nerve injury, and and after I met with the patient confirming the surgery, the patient was brought to the operative suite and placed supine on the operating table. Great care was taken to avoid pressure points to prevent pressure necrosis or nerve injury. Monitoring devices were applied along with TEDs and pneumatic compressive stockings (to prevent DVT). The patient received preoperative antibiotics for surgical prophylaxis. Narda Hadley CRNA sedated and anesthetized the patient for the entire procedure. The patient was prepped and draped in usual sterile manner. A "time in" then confirmed that the patient was identified with 3 identifiers (name, date, and medical record number), the history and physical was in the chart, the signed consent confirming the procedure was in the chart, the patient was in the correct position, the aforementioned prophylactic measures were in place were given, we had the correct personnel and equipment to complete the procedure and that anesthesia, and the surgical team was given an opportunity to express any concerns. With the agreement of everyone in the room, we proceeded with the operation. The initial incision was at the umbilicus and dissection to the umbilical hernia was completed using blunt and sharp dissection. The linea alba was grasped with a Nimesh and incised. In a similar manner the peritoneum was grasped and incised using Metzenbaum scissors. In this location, a 12 mm blunt tipped, balloon tipped port was placed and the balloon was inflated to keep the port in position. The abdominal cavity was insufflated with carbon dioxide to a steady- state pressure of 12 mmHg. Upon entering the abdomen with the 30 degree laparoscope dense adhesions were seen in the right upper quadrant. It was clear that extensive adhesiolysis was required in order to be able to visualize anything. 2 additional 5 mm ports were placed in standard locations for laparoscopic cholecystectomy (subxiphoid and right subcostal) under direct vision of the 30 degree laparoscope and without incident. The patient was then placed in reverse Trendelenburg position and was rotated slightly to their left. Sharp dissection was used to free the liver from the anterior abdominal wall with laparoscopic scissors. Dense adhesions of the omentum to the falciform ligament and liver were taken down using laparoscopic jordon as well as Bovie electrocautery. Despite this I was unable to visualize the gallbladder. After extensive adhesiolysis it was clear that I would not be able to visualize the gallbladder laparoscopically and I opted to convert to open. A right upper quadrant incision was then 2 fingerbreadths below the right subcostal margin. Dissection down to the abdominal cavity was completed using Bovie electrocautery. The peritoneum was grasped between 2 pickups and incised using Metzenbaum scissors gaining entry into the abdomen without incident. A Willi was then placed into the abdomen and used for retraction. Extensive adhesiolysis was still required due to the dense adhesions that obscured any view of the gallbladder. When enough of the omentum was taken down I could see that the duodenum as well as colon was stuck to the gallbladder and both these were carefully dissected away from the gallbladder. It was then apparent that the gallbladder itself was thickened and shrunken measuring less than my thumb. This very shrunken and thickened gallbladder was then dissected from the liver bed using traction countertraction, sharp dissection with Metzenbaum scissors as well as Bovie electrocautery. The gallbladder itself was inadvertently entered with return of boyer-green mucus and once his mucus was removed there was free flow of bile. A top down dissection was continued due to the lack of easily identifiable anatomy and this was taken down to the cystic duct and artery which were suture-ligated. The dissection of the cystic artery did result in some bleeding that required to sutures in order to fully control it. Pulse lavage of the right upper quadrant failed to cause or exacerbate any bleeding. A 19 [place] Rojas drain was placed to the right subcostal laparoscopic port hole and cut and directed to the subhepatic region. This was secured to the skin using a 3-0 nylon which was Josue sandaled about the drain. The peritoneum and posterior fascia was closed using a running 0-looped PDS and in a similar manner the anterior fascia was closed using an 0-looped PDS in a running fashion. The fascia the umbilicus was approximated using a obarwy-op-oekcm 0 Vicryl sutures thus repairing the umbilical hernia. The skin at each incision was approximated using skin priscilla (with the obvious exception of the right subcostal incision that contained the drain). The drain was placed to grenade suction. At this point a "timeout" was performed that confirmed that all counts were correct, the procedure that was performed, the blood loss, the IV fluids administered, the patient's condition and any concerns of the operating team had. Dressings were then applied. Having tolerated the procedure well, the patient was extubated and taken to recovery room in good and stable condition. The plan is for outpatient discharge tomorrow to ensure that the patient adequately recovers. This document was created in part using voice recognition technology. Because of the inherent limitations of the system, occasional same sounding word substitutions and grammatical errors do occur and persist despite proofreading. Please read this document for context.
[2020-09-21] MEDS ORDERED: SUGAMMADEX 200 MG/2 ML VIAL IVP ONE (16:29)
[2020-09-21] MEDS: HYDROmorphone 0.5 MG/0.5 ML SYRINGE IVP PRN ×2 (16:32→16:37)
[2020-09-21] MEDS ORDERED: HYDROmorphone 0.5 MG/0.5 ML SYRINGE ONE (16:34)
[2020-09-21] MEDS ORDERED: ONDANSETRON 4 MG/2 ML VIAL ONE (16:35)
[2020-09-21] MEDS ORDERED: HYDROmorphone 1 MG/ML CARPUJECT ONE (16:36)
--- NOTE | 2020-09-21 16:39 | ANESTHESIA POST OP EVALUATION ---
Anesthesia Post Eval - Post Anesthesia Eval Vitals: Last Vital Signs Temp 37.1 C 09/21/20 16:33 Pulse 61 09/21/20 16:33 Resp 16 09/21/20 16:33 BP 143/85 H 09/21/20 16:33 Pulse Ox 100 09/21/20 16:33 CV Function Including HR & BP: Stable Pain Control: Satisfactory (treated with 0.5mg dilaudid) Nausea & Vomiting: Negative Mental Status: Baseline Respiratory Status: Airway Patent Hydration Status: Satisfactory Anesthesia Complications: None
[2020-09-21] MEDS ORDERED: SODIUM CHLORIDE FLUSH 0.9% 10 ML SYRINGE IVP PRN (16:48)
--- NOTE | 2020-09-21 17:06 | CONSULTATION NOTE ---
Consultation Report: Call to PACU for increasing BPs 180, 190, 200 systolic. HR in 60's. Pt denies pain, need to urinate, or any discomfort. Hydralazine 10mg IV. First NIBP after meds, down 10mmhg. Will continue to monitor.
[2020-09-21] MEDS: SODIUM CHLORIDE FLUSH 0.9% 10 ML SYRINGE IVP SCH (17:38)
[2020-09-21] MEDS ORDERED: hydrALAZINE INJ 20 MG/ML VIAL ONE (17:44)
[2020-09-21] MEDS ORDERED: SODIUM CHLORIDE 0.9% 10 ML VIAL IVP ONE (17:44)
[2020-09-21] MEDS: HYDROmorphone 1 MG/ML CARPUJECT IVP PRN (17:46)
[2020-09-21] MEDS: HYDROcod/ACETAM 5/325 MG TABLET PO PRN ×2 (18:34→22:25)
[2020-09-22] MEDS: SODIUM CHLORIDE FLUSH 0.9% 10 ML SYRINGE IVP SCH ×2 (00:02→10:09)
[2020-09-22] MEDS: HYDROmorphone 1 MG/ML CARPUJECT IVP PRN (03:04)
[2020-09-22 05:49] LABS: BASOPHILS # (AUTO) 0.1 10^3/uL (0.0-0.1); BASOPHILS % (AUTO) 0.4 %; EOSINOPHILS % (AUTO) 0.1 %; HCT - HEMATOCRIT 33.6 % (42.0-52.0); HGB - HEMOGLOBIN 11.6 g/dL (14.0-18.0); LYMPHOCYTES # (AUTO) 1.9 10^3/uL (1.5-3.5); LYMPHOCYTES % (AUTO) 15.3 %; MEAN CORPUSCULAR HEMOGLOBIN 30.1 pg (27.0-31.0); MEAN CORPUSCULAR HGB CONC 34.5 g/dL (32.0-36.0); MEAN PLATELET VOLUME 9.6 fL (7.4-11.4); MONOCYTES # (AUTO) 1.6 10^3/uL (0.0-1.0); MONOCYTES % (AUTO) 12.7 %; NEUTROPHILS # (AUTO) 8.7 10^3/uL (1.5-6.6); NEUTROPHILS % (AUTO) 71.2 %; PLT - PLATELET COUNT 227 10^3/uL (130-450); RED BLOOD COUNT 3.86 10^6/uL (4.70-6.10); RED CELL DISTRIBUTION WIDTH 14.2 % (12.0-15.0); WHITE BLOOD COUNT 12.3 x10^3/uL (4.8-10.8)
[2020-09-22] MEDS: HYDROcod/ACETAM 5/325 MG TABLET PO PRN ×2 (06:48→11:20)
[2020-09-22 08:08] LABS: ALBUMIN 3.5 g/dL (3.2-5.5); ALBUMIN/GLOBULIN RATIO 1.2 (1.0-2.2); CREATININE 1.4 mg/dL (0.6-1.2); POTASSIUM 4.4 mmol/L (3.5-5.0); TOTAL PROTEIN 6.4 g/dL (6.7-8.2)
--- NOTE | 2020-09-22 08:38 | PROVIDER PROGRESS NOTE ---
Subjective - General Procedure Date: 09/21/20 Post Op Days: 1 Procedure Performed: Open cholecystectomy converted from laparoscopic due to inability to visual - Review of Systems Wound/Incisions: positive: Dressing dry and intact Drain Type: 19 Fr Rojas Drain Output Description: Serosanguinous Approximate mls Output: 20 mL General: positive: Other (9/10 pain with deep inspiration) HEENT: positive: No symptoms Pulmonary: positive: No symptoms Cardiovascular: positive: No symptoms Gastrointestinal: positive: Abdominal pain (See above) Genitourinary: positive: No symptoms Musculoskeletal: positive: No symptoms Skin: positive: No symptoms Psychiatric: positive: No symptoms Objective - Patient Data Reviewed Vital Signs: Yes Vital Signs: Vital Signs x48h Temp Pulse Resp BP Pulse Ox 09/22/20 06:49 36.6 C 78 20 180/76 H 97 09/22/20 03:46 37.2 C 77 20 177/70 H 97 Weight: Weight 09/20/20 09/21/20 09/22/20 23:59 23:59 23:59 Weight (kg) 74 kg Intake & Output: Intake and Output Totals x24h 09/20/20 09/21/20 09/22/20 23:59 23:59 23:59 Intake Total 240 150 Output Total 250 170 Balance - - Lab Results Lab Results: 09/22/20 05:41 09/22/20 05:41 Other Lab Results: Lab Results x24hrs 09/22/20 09/22/20 09/21/20 Range/Units 05:41 05:41 16:23 WBC 12.3 H (4.8-10.8) x10^3/uL RBC 3.86 L (4.70-6.10) 10^6/uL Hgb 11.6 L (14.0-18.0) g/dL Hct 33.6 L (42.0-52.0) % MCV 87.0 (80.0-94.0) fL MCH 30.1 (27.0-31.0) pg MCHC 34.5 (32.0-36.0) g/dL RDW 14.2 (12.0-15.0) % Plt Count 227 (130-450) 10^3/uL MPV 9.6 (7.4-11.4) fL Neut # (Auto) 8.7 H (1.5-6.6) 10^3/uL Lymph # (Auto) 1.9 (1.5-3.5) 10^3/uL Travis # (Auto) 1.6 H (0.0-1.0) 10^3/uL Eos # (Auto) 0.0 (0.0-0.7) 10^3/uL Baso # (Auto) 0.1 (0.0-0.1) 10^3/uL Absolute Nucleated RBC 0.00 x10^3/uL Nucleated RBC % 0.0 /100WBC Sodium 134 L (135-145) mmol/L Potassium 4.4 (3.5-5.0) mmol/L Chloride 103 (101-111) mmol/L Carbon Dioxide 22 (21-32) mmol/L Anion Gap 9.0 (6-13) BUN 31 H (6-20) mg/dL Creatinine 1.4 H (0.6-1.2) mg/dL Estimated GFR (MDRD) 49 L (>89) Glucose 214 H (70-100) mg/dL POC Whole Bld Glucose 201 H (70 - 100) mg/dL Calcium 9.0 (8.5-10.3) mg/dL Total Bilirubin 2.0 H (0.2-1.0) mg/dL AST 27 (10-42) IU/L ALT 24 (10-60) IU/L Alkaline Phosphatase 91 (42-121) IU/L Total Protein 6.4 L (6.7-8.2) g/dL Albumin 3.5 (3.2-5.5) g/dL Globulin 2.9 (2.1-4.2) g/dL Albumin/Globulin Ratio 1.2 (1.0-2.2) 09/21/20 Range/Units 11:10 WBC (4.8-10.8) x10^3/uL RBC (4.70-6.10) 10^6/uL Hgb (14.0-18.0) g/dL Hct (42.0-52.0) % MCV (80.0-94.0) fL MCH (27.0-31.0) pg MCHC (32.0-36.0) g/dL RDW (12.0-15.0) % Plt Count (130-450) 10^3/uL MPV (7.4-11.4) fL Neut # (Auto) (1.5-6.6) 10^3/uL Lymph # (Auto) (1.5-3.5) 10^3/uL Travis # (Auto) (0.0-1.0) 10^3/uL Eos # (Auto) (0.0-0.7) 10^3/uL Baso # (Auto) (0.0-0.1) 10^3/uL Absolute Nucleated RBC x10^3/uL Nucleated RBC % /100WBC Sodium (135-145) mmol/L Potassium (3.5-5.0) mmol/L Chloride (101-111) mmol/L Carbon Dioxide (21-32) mmol/L Anion Gap (6-13) BUN (6-20) mg/dL Creatinine (0.6-1.2) mg/dL Estimated GFR (MDRD) (>89) Glucose (70-100) mg/dL POC Whole Bld Glucose 206 H (70 - 100) mg/dL Calcium (8.5-10.3) mg/dL Total Bilirubin (0.2-1.0) mg/dL AST (10-42) IU/L ALT (10-60) IU/L Alkaline Phosphatase (42-121) IU/L Total Protein (6.7-8.2) g/dL Albumin (3.2-5.5) g/dL Globulin (2.1-4.2) g/dL Albumin/Globulin Ratio (1.0-2.2) - Current Medications Current Medications: Current Medications Generic Name Dose Route Start Last Admin Trade Name Freq PRN Reason Stop Dose Admin Hydrocodone Bitart/Acetaminophen 1 tab 09/21/20 16:48 09/22/20 06:48 Hydrocod/Acetam 5/325 Mg Tablet PO 1 tab Q4HR PRN Administration PAIN Hydromorphone HCl 1 mg 09/21/20 17:31 09/22/20 03:04 Hydromorphone 1 Mg/Ml Carpuject IVP 1 mg Q2HR PRN Administration PAIN Lactated Ringer's 1,000 mls @ 50 mls/hr 09/21/20 17:00 09/21/20 17:38 Lr IV 50 mls/hr .Q20H LENKA Administration Sodium Chloride 10 ml 09/21/20 17:00 09/22/20 00:02 Sodium Chloride Flush 0.9% 10 Ml Syringe IVP 10 ml 0100,0900,1700 LENKA Administration - Physical Exam Wound/Incisions: positive: Dressing dry and intact General Appearance: positive: No acute distress Eyes Bilateral: positive: Normal inspection, Conjunctivae nml ENT: positive: No signs of dehydration Neck: positive: Nml inspection Respiratory: positive: Chest non-tender, Breath sounds nml Cardiovascular: positive: Regular rate & rhythm Abdomen: positive: Nml bowel sounds, Tenderness (Incisional.) Skin: positive: Color nml Extremities: positive: Non-tender, Nml appearance. negative: Calf tenderness Neurologic/Psychiatric: positive: Oriented x3 ABX Reporting Has patient been on IV antibiotics over the past 48 hours?: Yes Impression/Plan - Problem List Problem List: D1 s/p open cholecystectomy converted from laparoscopic due to dense adhesions and inability to visualize the gallbladder Patient is sitting up in bed eating breakfast without nausea, vomiting or abdominal pain. Drainage in drain is serosanguinous and not bilious. Labs reviewed and although t bili is 2 it is not statistically different from values found throughout the years. Discharge patient home today and bring him back to office this for drain removal and Monday for postop and staple removal. Instructions reviewed with patient. Will discharge with pain medication and instructions have been given to avoid constipation. Patient has been instructed to call me with any questions or concerns. General diet. Okay to walk, climb stairs. No heavy lifting.
[2020-09-22 12:47] VITALS: BP 179/75
== END 2020-09-22 13:05 | disposition home or self-care (01) ==
LOC: SDS 10:39 → MS2 16:24 → SDS 09-22 13:05
PROVIDERS: ATTEND Surgery
PROC: 0FT40ZZ Resection of Gallbladder, Open Approach (ICD-10-PCS; 2020-09-21)
PROC: 0FJ44ZZ Inspection of Gallbladder, Percutaneous Endoscopic Approach (ICD-10-PCS; principal; 2020-09-21 11:45)
DX: K81.1 Chronic cholecystitis (principal); K82.8 Other specified diseases of gallbladder; K66.0 Peritoneal adhesions (postprocedural) (postinfection); K42.9 Umbilical hernia without obstruction or gangrene; I12.9 Hypertensive chronic kidney disease with stage 1 through stage 4 chronic kidney disease, or unspecified chronic kidney disease; E11.22 Type 2 diabetes mellitus with diabetic chronic kidney disease; N18.30 Chronic kidney disease, stage 3 unspecified; E11.319 Type 2 diabetes mellitus with unspecified diabetic retinopathy without macular edema; G47.30 Sleep apnea, unspecified; R41.89 Other symptoms and signs involving cognitive functions and awareness; E78.5 Hyperlipidemia, unspecified; N40.0 Benign prostatic hyperplasia without lower urinary tract symptoms; N28.9 Disorder of kidney and ureter, unspecified; D64.9 Anemia, unspecified; G25.0 Essential tremor; H91.90 Unspecified hearing loss, unspecified ear; Z79.84 Long term (current) use of oral hypoglycemic drugs; Z87.891 Personal history of nicotine dependence
CPT/HCPCS: 36415; 47600; 80053; 85025; A9270; J0690; J1170; J7120

== ENCOUNTER 2021-12-23 06:37 | Day surgery (SDC) | payer MEDICARE ==
[~2021-12-23 06:37] MED LIST changes: +CYCLOPENTOLATE 1% OPHTH DROPS 2 ML ONE; +KETOROLAC 0.45% OPHTH DROPS ONE; +PHENYLEPHRINE 2.5% OPHTH 2 ML DROPS ONE; +PROPARACAINE 0.5% OPHTH DROPS 15 ML ONE; -ceFAZolin 2 GM/50 ML 2 GM/50 ML BAG IV ONE
[2021-12-23] MEDS ORDERED: LACTATED RINGERS 1,000 ML IV ONE ×2 (07:01→09:00)
[2021-12-23] MEDS ORDERED: MIDAZOLAM 2 MG/2 ML VIAL ONE (07:55)
--- NOTE | 2021-12-23 08:20 | ANESTHESIA ---
Pre-Anesthesia VS, & Labs - Diagnosis L cataract - Procedure L PhacoIOL Vital Signs: Temp Pulse Resp BP Pulse Ox O2 Flow Rate 36.2 C L 66 14 169/76 H 100 12/23/21 06:56 12/23/21 06:56 12/23/21 06:56 12/23/21 06:56 12/23/21 06:56 Height: 5 ft 2 in Weight (kg): 69.2 kg Body Mass Index: 27.8 BMI Classification: Overweight - NPO >8 hours - Lab Results Current Lab Results: Laboratory Tests 12/23/21 07:05: POC Whole Bld Glucose 142 H Home Medications and Allergies Pravastatin [Pravachol] 40 mg PO DAILY 10/20/16 Propranolol [Inderal] 80 mg PO TID 10/20/16 metFORMIN [Glucophage] 500 mg PO BID 10/20/16 Losartan Potassium 25 mg PO BID 02/22/18 Tamsulosin HCl [Flomax] 0.8 mg PO DAILY 02/22/18 amLODIPine [Norvasc] 5 mg PO BID 02/22/18 Allergies/Adverse Reactions: Allergies Allergy/AdvReac Type Severity Reaction Status Date / Time No Known Drug Allergies Allergy Verified 03/06/20 11:15 Anes History & Medical History - Anesthetic History Anesthesia Complications: reports: No previous complications Family history of Anesthesia Complications: Denies Family history of Malignant Hyperthermia: Denies - Medical History Cardiovascular: reports: Hypertension, High cholesterol Pulmonary: reports: Sleep apnea Gastrointestinal: reports: Cholelithiasis Urinary: reports: Benign prostate hypertrophy, Renal insuffiency Musculoskeletal: reports: Chronic back pain Endocrine/Autoimmune: reports: Type 2 diabetes Blood Disorders: reports: Anemia Skin: reports: Other Smoking Status: Never smoker - Surgical History General: reports: Cholecystectomy Exam General: Alert, Oriented x3, Cooperative Mouth Openin Fingerbreadth Neck Mobility: Normal Mallampati classification: II Thyromental Distance: 4-6 cm Respiratory: Lungs clear Cardiovascular: Regular rate Plan Anesthesia Type: MAC Consent for Procedure(s) Verified and Reviewed: Yes Code Status: Attempt Resuscitation ASA classification: 2-Mild systemic disease Is this case an emergency?: No
[2021-12-23] MEDS ORDERED: BRIMONIDINE 0.2% OPHTH DROPS 5 ML OPTH ONE (08:30)
[2021-12-23] MEDS ORDERED: VANCOMYCIN OPHTH (TOPICAL) 10 MG/ML SYRINGE TOP ONE (08:31)
[2021-12-23] MEDS ORDERED: BSS/LIDOCAINE/EPINEPHRINE 1 ML SYRINGE IO ONE (08:31)
[2021-12-23] MEDS ORDERED: EPINEPHrine 1 MG/ML AMP IR ONE (08:31)
[2021-12-23] MEDS ORDERED: TRIAMCIN/MOXIFLOX OPHTHALMIC 0.6 ML VIAL IO ONE ×3 (08:31→08:51)
[2021-12-23] MEDS ORDERED: PROPARACAINE 0.5% OPHTH DROPS 15 ML LEFTEYE ONE (08:31)
[2021-12-23] MEDS ORDERED: TIMOLOL 0.5% OPHTH DROPS OPTH ONE (08:31)
[2021-12-23] MEDS ORDERED: BRIMONIDINE 0.2% OPHTH DROPS 5 ML ONE (08:50)
[2021-12-23] MEDS ORDERED: EPINEPHrine 1 MG/ML AMP ONE (08:50)
[2021-12-23] MEDS ORDERED: BSS/LIDOCAINE/EPINEPHRINE 1 ML VIAL ONE (08:50)
[2021-12-23] MEDS ORDERED: VANCOMYCIN OPHTH (TOPICAL) 10 MG/ML SYRINGE ONE (08:50)
[2021-12-23] MEDS ORDERED: TIMOLOL 0.5% OPHTH DROPS ONE (08:50)
--- NOTE | 2021-12-23 08:59 | OPERATIVE REPORT ---
Operative Report - Other Other Information/Narrative: Date of Surgery: 12/23/21 Preop Dx: Visually significant cataract left eye. This was the first cataract surgery. Postop Dx: Same Procedure: Phacoemulsification with posterior chamber intraocular lens implant left eye Surgeon: Dr. Rakesh Weber Anesthesia: Monitored anesthesia care Complications: None Operative Indications: This is a 81-year-old M with progressive vision loss in the left eye due to 2+ nuclear sclerotic cataract. Best corrected visual acuity was 20/100 with glare to 20/800 vision in the left eye. Indications for surgery were: - Overall decrease in vision - Difficulty seeing words on a computer screen - Difficulty reading - Difficulty seeing words, closed captions, or game scores on TV - Difficulty seeing street signs - Difficulty driving in low light or at night - Difficulty driving at night because of headlights from other vehicles - Difficulty with glare or bright lights in any situation - Difficulty tracking a golf ball - Decreased acuity with firearms The patient was consented at length concerning the risks and benefits of cataract surgery after which the patient expressed a desire to proceed with surgery. Operative Procedure: The patient was taken into OR#3 and placed under monitored anesthesia care. A surgical time-out was conducted confirming correct patient, correct procedure, and correct surgical site. The patient was given topical anesthesia and then prepped and draped in the usual sterile fashion. The eye was entered at the 6 and 3 oclock positions. Intracameral Shugarcaine was injected into the anterior chamber followed by a dispersive viscoelastic. A continuous-tear curvilinear capsulorhexis was performed. The nucleus was hydrodissected and phacoemulsified. The cortex was evacuated using automated infusion and aspiration. A cohesive viscoelastic was injected into the capsular bag and a 20.5 diopter intraocular lens was inserted into the bag. Infusion and aspiration were used to evacuate the viscoelastic materials from the eye. The wounds were hydrated and the eye inflated to physiologic pressure using balanced salt solution. Approximately 0.25ml of a mixture of triamcinolone and moxifloxacin was injected trans-sclerally into the vitreous in the inferotemporal quadrant using a 30 gauge cannula. An additional 0.55ml of a mixture of triamcinolone and moxifloxacin was injected subconjunctivally in the superior quadrant for infection and inflammation prophylaxis. Wound integrity was checked with Weck-Jaja sponges. The patient was taken from the operating room in good condition and given post-op instructions.
[2021-12-23 09:20] VITALS: BP 152/73
--- NOTE | 2021-12-23 09:29 | ANESTHESIA POST OP EVALUATION ---
Anesthesia Post Eval - Post Anesthesia Eval Vitals: Last Vital Signs Temp 36.6 C 12/23/21 09:05 Pulse 60 12/23/21 09:05 Resp 18 12/23/21 09:05 BP 152/73 H 12/23/21 09:05 Pulse Ox 99 12/23/21 09:05 O2 Flow Rate CV Function Including HR & BP: Stable Pain Control: Satisfactory Nausea & Vomiting: Negative Mental Status: Baseline Respiratory Status: Airway Patent Hydration Status: Satisfactory Anesthesia Complications: None
== END 2021-12-23 06:38 | disposition home or self-care (01) ==
LOC: SDS 06:37
PROVIDERS: ATTEND Ophthalmology
DX: E11.36 Type 2 diabetes mellitus with diabetic cataract (principal); H25.12 Age-related nuclear cataract, left eye; Z79.84 Long term (current) use of oral hypoglycemic drugs; N40.0 Benign prostatic hyperplasia without lower urinary tract symptoms; Z87.891 Personal history of nicotine dependence; Z79.899 Other long term (current) drug therapy; G47.33 Obstructive sleep apnea (adult) (pediatric); R25.1 Tremor, unspecified
CPT/HCPCS: 66984; A9270; J3490; J7120

== ENCOUNTER 2022-03-21 12:19 | Outpatient (CLI) | payer MEDICARE ==
--- NOTE | 2022-03-21 12:45 | CT Report ---
PROCEDURE: HEAD WO INDICATIONS: DELIRIUM TECHNIQUE: Noncontrast 4.5 mm thick angled axial sections acquired from the foramen magnum to the vertex. For r adiation dose reduction, the following was used: automated exposure control, adjustment of mA and/or kV according to patient size. COMPARISON: CT facial bones dated 10/20/2016. FINDINGS: Image quality: Excellent. CSF spaces: Basal cisterns are patent. No extra-axial fluid collections. Ventricles are normal in size and shape. Brain: No midline shift. No intracranial masses or hemorrhage. No mass effect. Abad-white matter i nterface is normal. There cerebral volume loss for age with resultant ventricular and sulcal prominen ce. There are periventricular and deep white matter chronic small vessel ischemic changes. Atheroscle rotic calcifications are noted in the intracranial segments of the bilateral internal carotid arterie s. Stable appearance of punctate hyperdensities involving the left basal ganglia compatible with senesce nt calcifications. Skull and face: Calvarium and visualized facial bones are intact, without suspicious lesions. Sinuses: Visualized sinuses and mastoids are clear. IMPRESSION: CT head without acute intracranial abnormalities. No acute calvarial fractures. Age-related senescent changes and sequela of chronic small vessel ischemic disease. Reviewed by: Alvin Roman MD on 03/21/2022 12:44 PM PST Approved by: Alvin Roman MD on 03/21/2022 12:44 PM PST Station ID: [id number]
== END 2022-03-21 12:20 | disposition home or self-care (01) ==
LOC: DI 12:19
PROVIDERS: ATTEND Registered Nurse
DX: F05 Delirium due to known physiological condition (principal)

== ENCOUNTER 2022-04-06 12:28 | Outpatient (CLI) | payer MEDICARE | END 2022-04-06 12:29 | disposition home or self-care (01) | LOC: DI 12:28 | PROVIDERS: ATTEND Registered Nurse | DX: R01.1 Cardiac murmur, unspecified (principal); I35.0 Nonrheumatic aortic (valve) stenosis | CPT/HCPCS: 93306 ==

== ENCOUNTER 2022-06-21 11:24 | Emergency (ER) | payer MEDICARE ==
[2022-06-21 12:14] LABS: BASOPHILS # (AUTO) 0.1 10^3/uL (0.0-0.1); EOSINOPHILS # (AUTO) 0.2 10^3/uL (0.0-0.7); EOSINOPHILS % (AUTO) 2.6 %; HCT - HEMATOCRIT 42.5 % (42.0-52.0); HGB - HEMOGLOBIN 13.9 g/dL (14.0-18.0); LYMPHOCYTES # (AUTO) 1.5 10^3/uL (1.5-3.5); LYMPHOCYTES % (AUTO) 19.4 %; MEAN CORPUSCULAR HEMOGLOBIN 29.4 pg (27.0-31.0); MEAN CORPUSCULAR HGB CONC 32.7 g/dL (32.0-36.0); MEAN CORPUSCULAR VOLUME 89.9 fL (80.0-94.0); MEAN PLATELET VOLUME 9.8 fL (7.4-11.4); MONOCYTES # (AUTO) 0.8 10^3/uL (0.0-1.0); MONOCYTES % (AUTO) 9.9 %; NEUTROPHILS # (AUTO) 5.3 10^3/uL (1.5-6.6); NEUTROPHILS % (AUTO) 66.2 %; PLT - PLATELET COUNT 259 10^3/uL (130-450); RED BLOOD COUNT 4.73 10^6/uL (4.70-6.10); RED CELL DISTRIBUTION WIDTH 13.7 % (12.0-15.0); WHITE BLOOD COUNT 7.9 x10^3/uL (4.8-10.8)
[2022-06-21 12:35] LABS: ALBUMIN 3.9 g/dL (3.2-5.5); ALBUMIN/GLOBULIN RATIO 1.2 (1.0-2.2); BILIRUBIN,TOTAL 1.1 mg/dL (0.2-1.0); CALCIUM 9.3 mg/dL (8.5-10.3); CREATININE 1.3 mg/dL (0.6-1.2); POTASSIUM 4.5 mmol/L (3.5-5.0); TOTAL PROTEIN 7.1 g/dL (6.7-8.2)
[2022-06-21] MEDS ORDERED: SODIUM CHLORIDE 0.9% 500 ML IV STA (13:39)
--- NOTE | 2022-06-21 14:04 | XRAY Report ---
PROCEDURE: Chest 1 View X-Ray INDICATIONS: fall TECHNIQUE: One view of the chest was acquired. COMPARISON: 03/06/2020 FINDINGS: Surgical changes and devices: None. Lungs and pleura: Low lung volumes, limiting evaluation. No dense consolidation or pleural effusion. Mediastinum: Prominent contour of the right superior mediastinum and bilateral anne-marie. Heart size is a t the upper limit of normal. Bones and chest wall: No suspicious bony lesions. Overlying soft tissues appear unremarkable. IMPRESSION: No acute radiographic abnormality. Low lung volumes limit evaluation. Prominent hilar and right superior mediastinal contours may be chronic, difficult to evaluate on radi ography. Consider full inspiration 2 view radiograph or chest CT follow-up to further evaluate. Reviewed by: Diomedes Olvera MD on 06/21/2022 2:02 PM PDT Approved by: Diomedes Olvera MD on 06/21/2022 2:02 PM PDT Station ID: [id number]
[2022-06-21 14:21] LABS: BILIRUBIN,URINE NEGATIVE (NEGATIVE); CLARITY,URINE CLEAR (CLEAR); GLUCOSE, URINE (UA) NEGATIVE (NEGATIVE); KETONES,URINE (UA) NEGATIVE (NEGATIVE); LEUKOCYTE ESTERASE, URINE NEGATIVE (NEGATIVE); NITRITE,URINE NEGATIVE (NEGATIVE); OCCULT BLOOD,URINE NEGATIVE (NEGATIVE); PROTEIN,URINE NEGATIVE (NEGATIVE); UROBILINOGEN,URINE 0.2 (NORMAL) E.U./dL (NORMAL)
--- NOTE | 2022-06-21 15:46 | ED Physician Documentation ---
History of Present Illness - Stated complaint Stated Complaint: BP HIGH - Chief complaint Chief Complaint: Cardiac - History obtained from History obtained from: Patient, Family (Patient's daughter) - Additonal information Additional information: Patient is an 82-year-old male with a history of dementia presenting for evaluation of generalized weakness for the past 2 days. He recently was started on Seroquel for hallucinations and agitation in the past week.Per daughter he does have a history of orthostatic hypotension but does also take medications for hypertension and believes he took it this morning. Per family this weekend he did have a ground-level fall which was witnessed by his son and his son Denies that he hit his head or had LOC. Patient has had increasing Per family he has had increasing Weakness for 2 days. He has felt dizzy with standing and that his legs are going to give out.They deny noticing any symptoms of recent illness with fever, cough, vomiting or diarrhea.History is somewhat limited due to the patient's dementia.He is not on a blood thinner.He lives with family at home.He lives with family at home. Review of Systems Unable to obtain: Dementia PD PAST MEDICAL HISTORY - Past Medical History Cardiovascular: Hypertension, High cholesterol Respiratory: Sleep apnea Endocrine/Autoimmune: Type 2 diabetes GI: Cholelithiasis : Benign prostate hypertrophy, Renal insuffiency HEENT: Chronic hearing loss Psych: None Musculoskeletal: Chronic back pain Derm: Other - Past Surgical History Past Surgical History: No General: Cholecystectomy - Present Medications Home Medications: Ambulatory Orders Medication Instructions Recorded Confirmed Pravastatin [Pravachol] 40 mg PO DAILY 10/20/16 06/21/22 Propranolol [Inderal] 80 mg PO TID 10/20/16 06/21/22 metFORMIN [Glucophage] 1,000 mg PO BID 10/20/16 06/21/22 amLODIPine [Norvasc] 5 mg PO BID 02/22/18 06/21/22 Donepezil HCl [Aricept] 10 mg PO DAILY 06/21/22 06/21/22 Losartan Potassium 25 mg PO 06/21/22 QUEtiapine [SEROquel] 25 mg PO QPM 06/21/22 06/21/22 Sertraline HCl 100 mg PO DAILY 06/21/22 06/21/22 - Allergies Allergies/Adverse Reactions: Allergies Allergy/AdvReac Type Severity Reaction Status Date / Time No Known Drug Allergies Allergy Verified 06/21/22 11:42 - Social History Does the pt smoke?: No Smoking Status: Never smoker Does the pt drink ETOH?: No Does the pt have substance abuse?: No - Immunizations Immunizations are current?: Yes - POLST Patient has POLST: No PD ED PE NORMAL - General General: No acute distress, Well developed/nourished. 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 No: Alert and oriented X 3 (Alert and oriented to baseline) Eye Opening: Spontaneous Motor: Obeys Commands Verbal: Confused GCS Score: 14 Results - Vitals Vitals: Vital Signs - 24 hr 06/21/22 06/21/22 06/21/22 11:34 13:32 13:45 Temperature 36.4 C L Heart Rate 55 L 64 57 L Heart Rate [ Sitting] Heart Rate [ Standing] Heart Rate [ Supine] Respiratory 16 13 58 H Rate Blood Pressure 208/82 H 139/97 H 232/93 H Blood Pressure [Sitting] Blood Pressure [Standing] Blood Pressure [Supine] O2 Saturation 98 100 100 06/21/22 06/21/22 06/21/22 14:15 15:24 16:45 Temperature Heart Rate 57 L 53 L Heart Rate [ 60 Sitting] Heart Rate [ 68 Standing] Heart Rate [ 56 L Supine] Respiratory 10 L 16 Rate Blood Pressure 196/87 H 207/88 H Blood Pressure 224/91 H [Sitting] Blood Pressure 223/169 H [Standing] Blood Pressure 232/91 H [Supine] O2 Saturation 98 06/21/22 18:49 Temperature 37 C Heart Rate 58 L Heart Rate [ Sitting] Heart Rate [ Standing] Heart Rate [ Supine] Respiratory 18 Rate Blood Pressure 196/87 H Blood Pressure [Sitting] Blood Pressure [Standing] Blood Pressure [Supine] O2 Saturation 99 Oxygen O2 Source Room air - EKG (time done) 1144 EKG releavant findings:: EKG personally interpreted by author of this note. Relevant findings are: Rate 55, Sinus bradycardia, no STEMI, no ST depressions, QTc 416 Rate: Rate (enter#) (55) Rhythm: Sinus bradycardia Intervals: No: Prolonged QT Ischemia: No: ST elevation c/w ischemia - Labs Labs: Laboratory Tests 06/21/22 06/21/22 06/21/22 12:09 12:09 14:14 WBC 7.9 RBC 4.73 Hgb 13.9 L Hct 42.5 MCV 89.9 MCH 29.4 MCHC 32.7 RDW 13.7 Plt Count 259 MPV 9.8 Neut # (Auto) 5.3 Lymph # (Auto) 1.5 [place] # (Auto) 0.8 Eos # (Auto) 0.2 Baso # (Auto) 0.1 Absolute Nucleated RBC 0.00 Nucleated RBC % 0.0 Sodium 139 Potassium 4.5 Chloride 106 Carbon Dioxide 23 Anion Gap 10.0 BUN 32 H Creatinine 1.3 H Estimated GFR (MDRD) 53 L Glucose 115 H Calcium 9.3 Total Bilirubin 1.1 H AST 22 ALT 31 Alkaline Phosphatase 95 Total Protein 7.1 Albumin 3.9 Globulin 3.2 Albumin/Globulin Ratio 1.2 Urine Color YELLOW Urine Clarity CLEAR Urine pH 6.0 Ur Specific [place] 1.015 Urine Protein NEGATIVE Urine Glucose (UA) NEGATIVE Urine Ketones NEGATIVE Urine Occult Blood NEGATIVE Urine Nitrite NEGATIVE Urine Bilirubin NEGATIVE Urine Urobilinogen 0.2 (NORMAL) Ur Leukocyte Esterase NEGATIVE Ur Microscopic Review NOT INDICATED Urine Culture Comments NOT INDICATED PD Medical Decision Making - ED course Complexity details: reviewed results, re-evaluated patient, d/w patient, d/w family ED course: Patient is an 82-year-old male with a history of dementia presenting for evaluation of generalized weakness. He does have an elevated blood pressure at triage. He has no focal deficits noted at exam. He appears to be alert and oriented at his baseline. EKG demonstrates a sinus rhythm. A CBC, chemistries, urine analysis and chest x-ray were reviewed.Creatinine is 1.3 which is better than prior labs. Chest x-ray appears negative for signs of infection or fluid. CT head was also obtained which I reviewed and is negative for signs of intracranial hemorrhage. Patient did receive a small fluid bolus and does appear to be slightly better and has some increased strength. He is requiring a walker Which she does not normally need. He was recently started on Seroquel and family was informed that it could cause him to have weakness and dizziness. His blood pressure has also been elevated here but he does not appear to be in a hypertensive crisis as his symptoms do not suggest a stroke, CT head is negative for any intracranial bleed. Patient denies chest pain.He has been resting comfortably here.Does not appear septic.Family is comfortable with taking him home and plans to have close follow-up with his PCP. They are advised on concerning symptoms to return for. 1625 - Still appears to have symmetric strength in upper and lower extremities but blood pressure has remained high and he remains weak with perhaps right leg buckling more. Given his dementia along with leg weakness and high blood pressure we will obtain a CT head.Daughter is at the bedside. 1800 - Patient did better after IV fluids. His head CT is negative for bleed. He has been hypertensive but does not appear to be in hypertensive emergency. Family has been at the bedside and I did review results with him. He did better walking with a walker and they do have one at home. They are comfortable with taking him home tonight and understand that he needs close follow-up with his PCP for his weakness as well as his blood pressure. Departure - Departure Disposition: 01 Home, Self Care Clinical Impression: Weakness generalized, Uncontrolled hypertension Condition: Stable Instructions: ED HTN Established, ED Weakness [facility] Follow-Up: Allison Hester, DRIVER [Primary Care Provider] - Comments: I would recommend that Ahsan have close follow-up with his primary care provider regarding his weakness. It could be related to dehydration, new medication that he is on, his elevated blood pressure. His blood pressure has been high here today But I do not want to rapidly lower read as this may cause it to become too low when he is at home. Please make sure he takes his blood pressure medication tonight. Please call his primary care provider tomorrow for close follow-up.Please continue to encourage hydration. Discharge Date/Time: 06/21/22 18:50
--- NOTE | 2022-06-21 17:06 | CT Report ---
PROCEDURE: HEAD WO INDICATIONS: high BP/weak TECHNIQUE: Noncontrast 4.5 mm thick angled axial sections acquired from the foramen magnum to the vertex. For r adiation dose reduction, the following was used: automated exposure control, adjustment of mA and/or kV according to patient size. COMPARISON: CT 03/21/2022. FINDINGS: Image quality: Excellent. CSF spaces: Basal cisterns are patent. No extra-axial fluid collections. Ventricles are normal in size and shape. Brain: No midline shift. No intracranial masses or hemorrhage. Abad-white matter interface is norm al. Vascular calcifications. Periventricular white matter disease is commonly seen with chronic micr oangiopathy. Volume loss is present. These findings are within normal limits for age. Skull and face: Calvarium and visualized facial bones are intact, without suspicious lesions. Sinuses: Visualized sinuses and mastoids are clear. IMPRESSION: No acute intracranial pathology Reviewed by: Dion Cole on 06/21/2022 5:04 PM PDT Approved by: Dion Cole on 06/21/2022 5:04 PM PDT Station ID: [id number]
[2022-06-21 18:50] VITALS: BP 196/87
== END 2022-06-21 18:50 | disposition home or self-care (01) ==
LOC: ED 11:24
DX: R53.1 Weakness (principal); I10 Essential (primary) hypertension
CPT/HCPCS: 36415; 80053; 81001; 81003; 85025; 87086; 93005; 99284

== ENCOUNTER 2022-06-21 21:21 | Outpatient (CLI) | payer MEDICARE | END 2022-06-21 21:22 | disposition critical access hospital (66) | LOC: EMS 21:21 | DX: F03.911 Unspecified dementia, unspecified severity, with agitation (principal) | CPT/HCPCS: A0425; A0429 ==

== ENCOUNTER 2022-06-21 21:34 | Emergency (ER) | payer MEDICARE ==
[2022-06-21 21:57] LABS: BASOPHILS # (AUTO) 0.1 10^3/uL (0.0-0.1); BASOPHILS % (AUTO) 0.7 %; EOSINOPHILS # (AUTO) 0.2 10^3/uL (0.0-0.7); HCT - HEMATOCRIT 40.9 % (42.0-52.0); HGB - HEMOGLOBIN 13.4 g/dL (14.0-18.0); LYMPHOCYTES # (AUTO) 1.3 10^3/uL (1.5-3.5); LYMPHOCYTES % (AUTO) 15.2 %; MEAN CORPUSCULAR HEMOGLOBIN 29.2 pg (27.0-31.0); MEAN CORPUSCULAR HGB CONC 32.8 g/dL (32.0-36.0); MEAN CORPUSCULAR VOLUME 89.1 fL (80.0-94.0); MEAN PLATELET VOLUME 10.1 fL (7.4-11.4); MONOCYTES # (AUTO) 0.9 10^3/uL (0.0-1.0); MONOCYTES % (AUTO) 10.4 %; NEUTROPHILS # (AUTO) 6.1 10^3/uL (1.5-6.6); NEUTROPHILS % (AUTO) 71.1 %; PLT - PLATELET COUNT 217 10^3/uL (130-450); RED BLOOD COUNT 4.59 10^6/uL (4.70-6.10); RED CELL DISTRIBUTION WIDTH 13.7 % (12.0-15.0); WHITE BLOOD COUNT 8.5 x10^3/uL (4.8-10.8)
[2022-06-21 22:20] LABS: ALBUMIN 3.5 g/dL (3.2-5.5); ALBUMIN/GLOBULIN RATIO 1.2 (1.0-2.2); BILIRUBIN,TOTAL 1.1 mg/dL (0.2-1.0); CREATININE 1.4 mg/dL (0.6-1.2); TOTAL PROTEIN 6.4 g/dL (6.7-8.2)
[2022-06-21 23:02] LABS: B. PARAPERTUSSIS- RESP PCR PAN NOT DETECTED; B. PERTUSSIS- RESP PCR PANEL NOT DETECTED; C. PNEUMONIAE- RESP PCR PANEL NOT DETECTED; CORONAVIRUS 229E-RESP PCR NOT DETECTED; CORONAVIRUS HKU1-RESP PCR NOT DETECTED; CORONAVIRUS NL63-RESP PCR NOT DETECTED; CORONAVIRUS OC43-RESP PCR NOT DETECTED; HUMAN METAPNEUMOVIRUS NOT DETECTED; INFLUENZA A- RESP PCR PANEL NOT DETECTED; INFLUENZA B - RESP PCR PANEL NOT DETECTED; M. PNEUMONIAE- RESP PCR PANEL NOT DETECTED; PARAINFLUENZA VIRUS 1 NOT DETECTED; PARAINFLUENZA VIRUS 2 NOT DETECTED; PARAINFLUENZA VIRUS 3 NOT DETECTED; PARAINFLUENZA VIRUS 4 NOT DETECTED; RHINOVIRUS/ENTEROVIRUS NOT DETECTED; RSV- RESP PCR PANEL NOT DETECTED; SARS-CoV-2 -RESP PCR PANEL NOT DETECTED
[2022-06-22] MEDS ORDERED: diazePAM 5 MG TABLET PO STA (03:29)
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
[2022-06-22 06:37] LABS: MUDS CUTOFF CONCENTRATIONS CUTOFF CONC BELOW:
[2022-06-22 06:54] LABS: AMPHETAMINE SCREEN,URINE NEGATIVE (NEGATIVE); BARBITURATE SCREEN,UR NEGATIVE (NEGATIVE); BENZODIAZEPINES SCREEN, URINE NEGATIVE (NEGATIVE); COCAINE SCREEN URINE NEGATIVE (NEGATIVE); METHADONE SCREEN, URINE NEGATIVE (NEGATIVE); METHAMPHETAMINES SCREEN, URINE NEGATIVE (NEGATIVE); OPIATE SCREEN, URINE NEGATIVE (NEGATIVE); OXYCODONE SCREEN, URINE NEGATIVE (NEGATIVE); PROPOXYPHENE SCREEN, URINE NEGATIVE (NEGATIVE); THC CANNABINOID SCREEN, URINE NEGATIVE (NEGATIVE); TRICYCLIC ANTIDEPRESSANT,URINE POSITIVE (NEGATIVE)
[2022-06-22] MEDS ORDERED: BUPIVACAINE 0.5% PF 10 ML VIAL ONE (12:19)
[2022-06-22] MEDS ORDERED: ACETAMINOPHEN 500 MG TABLET PO PRN (18:08)
[2022-06-22] MEDS ORDERED: ONDANSETRON 4 MG/2 ML VIAL IVP PRN (18:08)
--- NOTE | 2022-06-22 18:20 | ED Physician Documentation ---
ED Addendum - Addendum Addendum: 06/22/22 18:19 Mr. Casillas was interactive and cooperative today. Placement is being sought and social work is involved. We have started the patient's regular home medications today.
[2022-06-22] MEDS: metFORMIN 500 MG TABLET PO SCH (20:22)
[2022-06-22] MEDS: PROPRANOLOL 10 MG TABLET PO SCH (20:22)
[2022-06-22] MEDS: DONEPEZIL 5 MG TABLET PO SCH (20:22)
[2022-06-22] MEDS: amLODIPine 5 MG TABLET PO SCH (20:23)
[2022-06-22] MEDS: QUEtiapine 25 MG TABLET PO SCH (20:23)
[2022-06-23 05:26] LABS: BASOPHILS # (AUTO) 0.1 10^3/uL (0.0-0.1); BASOPHILS % (AUTO) 0.8 %; EOSINOPHILS # (AUTO) 0.2 10^3/uL (0.0-0.7); EOSINOPHILS % (AUTO) 2.8 %; HCT - HEMATOCRIT 41.1 % (42.0-52.0); HGB - HEMOGLOBIN 13.9 g/dL (14.0-18.0); LYMPHOCYTES # (AUTO) 1.9 10^3/uL (1.5-3.5); MEAN CORPUSCULAR HGB CONC 33.8 g/dL (32.0-36.0); MEAN CORPUSCULAR VOLUME 88.6 fL (80.0-94.0); NEUTROPHILS % (AUTO) 60.3 %; PLT - PLATELET COUNT 195 10^3/uL (130-450); RED BLOOD COUNT 4.64 10^6/uL (4.70-6.10); WHITE BLOOD COUNT 8.4 x10^3/uL (4.8-10.8)
[2022-06-23 05:34] LABS: CREATININE 1.4 mg/dL (0.6-1.2); POTASSIUM 4.1 mmol/L (3.5-5.0)
[2022-06-23] MEDS ORDERED: OLANZapine 10 MG VIAL IM STA (05:40)
[2022-06-23] MEDS ORDERED: OLANZapine 10 MG VIAL IM ONE (05:40)
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
[2022-06-23] MEDS ORDERED: OLANZapine ODT 5 MG TABLET TL ONE (10:45)
[2022-06-23] MEDS: MULTIVITAMIN TABLET PO SCH (11:11)
[2022-06-23] MEDS: PANTOPRAZOLE 40 MG TABLET PO SCH (11:11)
[2022-06-23] MEDS: SERTRALINE 50 MG TABLET PO SCH (11:12)
[2022-06-23] MEDS: metFORMIN 500 MG TABLET PO SCH ×2 (11:12→20:50)
[2022-06-23] MEDS: PROPRANOLOL 10 MG TABLET PO SCH ×2 (11:12→20:49)
[2022-06-23] MEDS: amLODIPine 5 MG TABLET PO SCH ×2 (11:12→20:50)
[2022-06-23] MEDS: PRAVASTATIN 40 MG TABLET PO SCH (11:12)
[2022-06-23] MEDS: LOSARTAN 50 MG TABLET PO SCH (11:12)
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
[2022-06-23] MEDS: DONEPEZIL 5 MG TABLET PO SCH (20:49)
[2022-06-23] MEDS: QUEtiapine 25 MG TABLET PO SCH (20:50)
[2022-06-24] MEDS: LOSARTAN 50 MG TABLET PO SCH (12:44)
[2022-06-24] MEDS: MULTIVITAMIN TABLET PO SCH (12:44)
[2022-06-24] MEDS: SERTRALINE 50 MG TABLET PO SCH (12:44)
[2022-06-24] MEDS: PRAVASTATIN 40 MG TABLET PO SCH (12:45)
[2022-06-24] MEDS: PROPRANOLOL 10 MG TABLET PO SCH ×2 (12:45→21:52)
[2022-06-24] MEDS: metFORMIN 500 MG TABLET PO SCH ×2 (12:45→21:52)
[2022-06-24] MEDS: PANTOPRAZOLE 40 MG TABLET PO SCH (12:45)
[2022-06-24] MEDS: amLODIPine 5 MG TABLET PO SCH ×2 (12:45→21:51)
--- NOTE | 2022-06-24 13:10 | ED Physician Documentation ---
ED Addendum - Addendum Addendum: Pt signed out by overnight physician. He is boarding awaiting placement. Per SW, pt will likely remain in ED overnight. No agitation events overnight. Patient will be signed out at shift change.
[2022-06-24] MEDS ORDERED: PROPRANOLOL 10 MG TABLET ONE ×2 (21:17→21:25)
[2022-06-24] MEDS ORDERED: PROPRANOLOL 40 MG TABLET PO ONE ×2 (21:28)
[2022-06-24] MEDS: QUEtiapine 25 MG TABLET PO SCH (21:52)
[2022-06-24] MEDS: DONEPEZIL 5 MG TABLET PO SCH (21:52)
[2022-06-25] MEDS: PANTOPRAZOLE 40 MG TABLET PO SCH (06:08)
--- NOTE | 2022-06-25 08:23 | ED Physician Documentation ---
ED Addendum - Addendum Addendum: 06/25/22 08:23 Patient seen and examined at the bedside. He is calm and cooperative albeit clearly demented and does not know why he is here. Unfortunately his last night. Social work note from yesterday reviewed. Looks like he may go to [facility] on Monday. She requested COVID test for tomorrow and a timed test for tomorrow morning was ordered.
[2022-06-25] MEDS: amLODIPine 5 MG TABLET PO SCH ×2 (08:39→21:00)
[2022-06-25] MEDS: MULTIVITAMIN TABLET PO SCH (08:39)
[2022-06-25] MEDS: LOSARTAN 50 MG TABLET PO SCH (08:39)
[2022-06-25] MEDS: PRAVASTATIN 40 MG TABLET PO SCH (08:39)
[2022-06-25] MEDS: metFORMIN 500 MG TABLET PO SCH ×2 (08:39→21:01)
[2022-06-25] MEDS: SERTRALINE 50 MG TABLET PO SCH (08:40)
[2022-06-25] MEDS: PROPRANOLOL 40 MG TABLET PO SCH ×2 (08:40→21:00)
[2022-06-25] MEDS: DONEPEZIL 5 MG TABLET PO SCH (21:00)
[2022-06-25] MEDS: QUEtiapine 25 MG TABLET PO SCH (21:00)
[2022-06-26] MEDS ORDERED: QUEtiapine 25 MG TABLET PO STA (03:00)
[2022-06-26] MEDS: PANTOPRAZOLE 40 MG TABLET PO SCH (06:50)
[2022-06-26] MEDS: MULTIVITAMIN TABLET PO SCH (06:50)
[2022-06-26] MEDS: amLODIPine 5 MG TABLET PO SCH ×2 (08:06→21:00)
[2022-06-26] MEDS: LOSARTAN 50 MG TABLET PO SCH (08:06)
[2022-06-26] MEDS: metFORMIN 500 MG TABLET PO SCH ×2 (08:06→21:00)
[2022-06-26] MEDS: PRAVASTATIN 40 MG TABLET PO SCH (08:06)
[2022-06-26] MEDS: SERTRALINE 50 MG TABLET PO SCH (08:06)
[2022-06-26] MEDS ORDERED: OLANZapine ODT 5 MG TABLET TL STA (08:07)
[2022-06-26] MEDS: PROPRANOLOL 40 MG TABLET PO SCH ×2 (08:20→21:00)
[2022-06-26] MEDS ORDERED: LORazepam 1 MG TABLET PO STA (08:43)
--- NOTE | 2022-06-26 15:48 | ED Physician Documentation ---
ED Addendum - Addendum Addendum: 06/26/22 15:46 Patient was signed out to me at change of shift, continuing to pend Geropsych and long-term care placement. The patient had required an extra dose of Seroquel the night before because he was a bit agitated, but otherwise, had had no issues the previous night. The patient was overall stable in the emergency department, though he did begin to become a bit agitated and had some hallucinations. He was constantly coming out of his room, wandering around and talking to machines, occasionally becoming mildly escalated. He was easily redirectable, but I did go ahead and give him another dose of Zyprexa 5 mg and Ativan 2 mg. The patient did become calm and was without further incident for the rest of the day. He will be signed out to the oncoming emergency physician at change of shift, pending long-term care placement.
[2022-06-26] MEDS: QUEtiapine 25 MG TABLET PO SCH (21:00)
[2022-06-26] MEDS: DONEPEZIL 5 MG TABLET PO SCH (21:00)
[2022-06-27] MEDS: MULTIVITAMIN TABLET PO SCH (06:46)
[2022-06-27] MEDS: PANTOPRAZOLE 40 MG TABLET PO SCH (06:46)
[2022-06-27] MEDS: metFORMIN 500 MG TABLET PO SCH ×2 (09:55→20:36)
[2022-06-27] MEDS: LOSARTAN 50 MG TABLET PO SCH (09:55)
[2022-06-27] MEDS: PRAVASTATIN 40 MG TABLET PO SCH (09:55)
[2022-06-27] MEDS: amLODIPine 5 MG TABLET PO SCH ×2 (09:55→20:36)
[2022-06-27] MEDS: PROPRANOLOL 40 MG TABLET PO SCH ×2 (09:56→20:36)
[2022-06-27] MEDS: SERTRALINE 50 MG TABLET PO SCH (09:56)
--- NOTE | 2022-06-27 18:20 | ED Physician Documentation ---
ED Addendum - Addendum Addendum: 06/27/22 18:20 The patient was signed out to me at change of shift, continuing to pend long- term care placement. He is continuing to be followed by social work to this end. The patient was cooperative throughout the day. He got up and walked around, conversed cordially with the staff, and took his medications. He also ate some food. The patient is signed out to the oncoming emergency physician, continuing to pend long-term care placement with possible geropsych admission preceding.
[2022-06-27] MEDS: DONEPEZIL 5 MG TABLET PO SCH (20:36)
[2022-06-27] MEDS: QUEtiapine 25 MG TABLET PO SCH (20:36)
[2022-06-28] MEDS: PANTOPRAZOLE 40 MG TABLET PO SCH (06:08)
--- NOTE | 2022-06-28 07:28 | ED Physician Documentation ---
ED Addendum - Addendum Addendum: 06/28/22 07:23 Patient received a signout from outgoing physician, please see their do cumentation for further detail. Patient evaluated independently at bedside at Approximately 07 20 hrs., found to be resting comfortably, In no acute distress. Report from overnight doc as patient continues to have episodes of wandering throughout the department. Nighttime Seroquel was increased from 25 to 50 mg last night. Patient pending social work evaluation for possible placement or further discussion with family about next best steps.
[2022-06-28] MEDS ORDERED: OLANZapine ODT 5 MG TABLET TL ONE (07:48)
[2022-06-28] MEDS ORDERED: LORazepam 1 MG TABLET PO PRN (07:49)
[2022-06-28] MEDS ORDERED: OLANZapine ODT 5 MG TABLET TL PRN (07:50)
[2022-06-28] MEDS: metFORMIN 500 MG TABLET PO SCH ×2 (08:22→21:33)
[2022-06-28] MEDS: MULTIVITAMIN TABLET PO SCH (08:22)
[2022-06-28] MEDS: LOSARTAN 50 MG TABLET PO SCH (08:22)
[2022-06-28] MEDS: amLODIPine 5 MG TABLET PO SCH ×2 (08:22→21:33)
[2022-06-28] MEDS: SERTRALINE 50 MG TABLET PO SCH (08:23)
[2022-06-28] MEDS: PRAVASTATIN 40 MG TABLET PO SCH (08:23)
[2022-06-28] MEDS: PROPRANOLOL 40 MG TABLET PO SCH ×2 (08:23→21:34)
[2022-06-28] MEDS: DONEPEZIL 5 MG TABLET PO SCH (21:32)
[2022-06-28] MEDS: QUEtiapine 25 MG TABLET PO SCH (21:33)
[2022-06-29] MEDS: PANTOPRAZOLE 40 MG TABLET PO SCH (07:06)
[2022-06-29] MEDS: amLODIPine 5 MG TABLET PO SCH ×2 (13:04→21:18)
[2022-06-29] MEDS: MULTIVITAMIN TABLET PO SCH (13:04)
[2022-06-29] MEDS: PRAVASTATIN 40 MG TABLET PO SCH (13:05)
[2022-06-29] MEDS: LOSARTAN 50 MG TABLET PO SCH (13:05)
[2022-06-29] MEDS: metFORMIN 500 MG TABLET PO SCH ×2 (13:05→21:02)
[2022-06-29] MEDS: SERTRALINE 50 MG TABLET PO SCH (13:06)
[2022-06-29] MEDS: PROPRANOLOL 40 MG TABLET PO SCH ×2 (13:06→21:05)
[2022-06-29] MEDS: DONEPEZIL 5 MG TABLET PO SCH (21:02)
[2022-06-29] MEDS: QUEtiapine 25 MG TABLET PO SCH (21:03)
--- NOTE | 2022-06-30 06:15 | ED Physician Documentation ---
ED Addendum - Addendum Addendum: 06/30/22 06:14Note for 06/29/22 Patient rested in ED throughout the day. No reported issues from nursing. SW says the [facility] placement spot is still at capacity.
[2022-06-30] MEDS: PANTOPRAZOLE 40 MG TABLET PO SCH (06:38)
[2022-06-30] MEDS: MULTIVITAMIN TABLET PO SCH (06:56)
[2022-06-30] MEDS: LOSARTAN 50 MG TABLET PO SCH (08:45)
[2022-06-30] MEDS: PROPRANOLOL 40 MG TABLET PO SCH ×2 (08:45→20:57)
[2022-06-30] MEDS: amLODIPine 5 MG TABLET PO SCH ×2 (08:45→20:55)
[2022-06-30] MEDS: PRAVASTATIN 40 MG TABLET PO SCH (08:45)
[2022-06-30] MEDS: SERTRALINE 50 MG TABLET PO SCH (08:45)
[2022-06-30] MEDS: metFORMIN 500 MG TABLET PO SCH ×2 (08:45→20:54)
--- NOTE | 2022-06-30 08:51 | ED Physician Documentation ---
ED Addendum - Addendum Addendum: 06/30/22 08:46 The patient was up in walking about. No complaints this morning. He was going into have his breakfast. He states he is having some mild emotional distress because he states his is wanting to separate. Its not clear whether this is a true story or not. I would have to look at the background history. Reportedly there had been some emotional outbursts. Social work asked that we obtain a telepsych consultation for medication recommendations perhaps as this may help advance placement of the patient without having to go to [facility] directly.
--- NOTE | 2022-06-30 10:31 | TELEPSYCH PHYS NOTE ---
Telepsych Consultation Note Consult: Name: Ahsan CasillasDOB: 1940 DateandTime: 06/30/2022 12:36:57 PM [facility] Length of consult: 40 minutes This evaluation was conducted via video telepsychiatry with the assistance of onsite staff Reason for consult: Medication recommendations Requested by: Dr. Davison History of Present Illness: Chart reviewed and appreciated, case discussed with ED attending Dr. Davison and charge nurse [place]. 82 y/o male with history of dementia, presented to ED on 06/22 for second time recently, brought in by family due to increased agitation/behavioral outbursts and aggression toward family members at home. Initial plan was possible geropsych admission, however this was not an option and long-term placement is now being sought, as pt could no longer be managed at home. Attending denies any report of recent outbursts for pt while in the ED. Per RN, pt has been generally calm and cooperative for the most part, is compliant with meds. He had some agitation this past weekend after not sleeping for 2 days, at which time he was given Zyprexa 5 mg and Ativan 2 mg. RN reports that he continued to escalate after the Zyprexa, but after the Ativan calmed down and slept for over 12 hours. Since then, pt has been calm, cooperative, and redirectable and has been sleeping well at night. Of note, RN reports that pt's actually suddenly over the weekend as well, came in to visit pt and then coded. Pt sometimes remembers this and sometimes does not, but this could have caused increased distress for pt when he was informed. Pt seen and examined, is pleasant and cooperative but quite confused. Many of his responses are illogical or incoherent. Pt has some level of hearing impairment, so automatic typewriter inspector repeats questions and RN assists in relaying questions when needed. Even with these measures, pt's responses often do not make sense. Pt reports being at the hospital to "work on some of the ground that was here, they had uh, I don't know how many trees... worked 'em by hand... some med talking, on my phone... not the only reason why we started in, guess there may be some other reason too". Appetite is "not the best but hanging in there". Reports sleeping well. When asked if feeling anxious, pt replies, "eight, nine and service recording". When asked if feeling depressed, pt replies, "if I have, I haven't read it yet... don't know what section of it is, applied to me". When asked again, pt replies, "suppose I've felt a little tired in the last few weeks". When asked about any suicidal thoughts, pt replies, "I don't know about that, first time I ever heard anybody talk to me about that". When asked again, pt reports his and that "took a hold". When asked about any thoughts to harm others, pt reports history of "getting ballistic on people" in the past, feeling they "had no right to mess with me" but "I've grown up since then". When asked about hallucinations, pt states, "I do kind of pass around sometimes, probably would see something that others would miss, I don't know". Pt is able to provide his date of but is not sure of current year or month. Pt reports being in [place], "cross into [place], do some work, then come back over here, that's about the general mess I'm in". Unable to obtain further meaningful history from pt. Collateral Contacted: Barbi for not contacting the collateral:OtherOther: None available at time of consult Sleep issues?: YesSleep Quantity:UnknownSleep Quality:Per staff report, pt had significant insomnia last week but sleeping well since then. Psychiatric History/Treatment History: Past diagnoses: Dementia; Unknown additional psychiatric history Hospitalizations: Unknown-NA Current Treatment:YesMedication management:YesMedications:Pt is prescribed Zoloft, Aricept, Seroquel.Therapy:No Suicide Assessment: PSS-3: 1) Over the past 2 weeks have you felt down, depressed or hopeless?Unknown-NA Description:Unable to complete due to pt's current mental status. 2) Over the past 2 weeks have you had thoughts of killing yourself?Unknown-NA 3) Have you ever in your life attempted to kill yourself?Unknown-NA Within the past 6 months? [facility] Safety Assessment: Risk Factors Stressors: Recent loss of Attempts/Self-injury: Unknown-NA Impulsivity:YesDescription:Impulsive/agitation behavior at home. Drug/Alcohol History:Unknown-NA Trauma History:Unknown-NA Access to firearms:Unknown-NA HI/Violence/Property destruction:YesDescription:Aggressive behavior at home in setting of dementia. Legal: Unknown-NA Family Psych History:Unknown-NA Family History of suicide:Unknown-NA Protective Factors: Can handle stress well?Unknown-NA Amish?Unknown-NA External: Social supports/ Therapeutic relationships: YesDescription:Son is involved per chart. Relationship history: , has a son. Living situation: Was previously living at home with family. Employment: No Education: Unable to obtain Responsibility to family/children/work: No Future orientation:Unknown-NA Health History: Medical History: HTN, high cholesterol, ZEN, DM2, cholelithiasis, BPH, renal insufficiency, chronic hearing loss Medications & Freq: Psychiatric medications include: Aricept 10 mg qPM, Ativan 1 mg PO prn agitaiton, Zoloft 100 mg daily, Seroquel 50 mg qHS. Please see EMR for full current medication list. Allergies: NKDA Mental Status Exam: Appearance and Attire:Appears stated age, Fair grooming Psychomotor agitation:No abnormalities appreciated via video Attitude and behavior:Pleasantly confused, Calm, Cooperative Speech:No abnormality, Mood:Neutral Affect:Full range of affect Thought process:A few goal-directed responses but mostly nonsensical Thought content:Poverty of content Perception:Does not appear to be responding to internal stimuli Intel:Unable to assess Abstract:Unable to assess Language:No abnormality Orientation:Oriented to self only Sense:Alert Knowledge:Unable to assess Memory:Impaired Insight:Impaired Judgement:Impaired Gait:Not assessed Impression/Risk Assessment: Current Suicide Risk Elevated?No Current Violence Risk Elevated?No Issues with ability to care for self?Yes Description:In setting of ceci rocognitive disorder Summary: 82 y/o male with history of dementia, brought to ED by family multiple times due to agitation/aggression at home, family no longer able to manage behaviors in that setting so long-term placement is being sought. While in the ED, pt had some isolated agitation in setting of insomnia x 2 days but otherwise has been generally calm and redirectable. Pt unable to meaningfully participate in evaluation but based on current exam and available information, imminent risk of harm to self or others is low. Diagnosis: F03.91 Unspecified dementia with behavioral disturbance CPT Codes: 55474 - Psychiatric Diagnostic Evaluation with Medical Services Treatment Plan: General: At this time, pt does not meet criteria for inpatient psychiatric admission. Behaviors are much improved with current regimen. Agree with plan to find long-term placement for pt, at a memory care facility or equivalent. Level of Care: Continue current status Psychiatric Clearance: Yes Observation level 1:1 needed?: NA Pharmacological: Recommend Seroquel 12.5-25 mg BID prn agitation (1st line). Can continue prn Ativan as 2nd line option. Benzos are generally not recommended for dementia patients due to potential adverse effects. However, per staff report this has been effective for pt when needed, so may be of benefit if Seroquel not adequate. However, would recommend trying to minimize benzo use as much as possible. No further changes recommended at this time. Patient psychotic?No Therapy: N/A Follow up needed while in the hospital?: YesNumber of times:Please feel free to re-consult for further recommendations as indicated while pt remains in the ED. Discussed plan with onsite prepared foods service team member: Yes Who? Dr. Lionel Davison. List names and roles of persons who participated in consult: Zeynep López DO; ED staff
[2022-06-30] MEDS ORDERED: QUEtiapine 25 MG TABLET PO PRN (18:15)
--- NOTE | 2022-06-30 18:18 | ED Physician Documentation ---
ED Addendum - Addendum Addendum: 06/30/22 18:16 The telepsych provider talked with the patient as well as the nursing staff. She reviewed the medications. The psychiatrist is in favor of continuing the current medications including the Aricept, Seroquel at night, antidepressant. Benzodiazepines are less commonly used for agitation and dementia and suggests not using the benzodiazepine unless necessary as a backup. Otherwise suggest additional dose of Seroquel 12.5 to 25 mg if needed for agitation. I amended t he order medications to reflect that.
[2022-06-30] MEDS: DONEPEZIL 5 MG TABLET PO SCH (20:55)
[2022-06-30] MEDS: QUEtiapine 25 MG TABLET PO SCH (20:56)
[2022-07-01] MEDS: PANTOPRAZOLE 40 MG TABLET PO SCH (06:44)
[2022-07-01 06:56] VITALS: BP 112/59
--- NOTE | 2022-07-01 08:42 | ED Physician Documentation ---
ED Addendum - Addendum Addendum: 07/01/22 08:40 The patient had received a extra dose of Seroquel last evening around 6 PM mainly because of being a little bit anxious and wandering in the department. He was offered it and accepted. He seems to be doing okay through the evening and overnight. He had his usual nighttime medications. No reports of problems during the night from nursing staff. At this point I would keep his medications the same and not increase. Maintain the as needed's if needed. I checked on him this morning he was sleeping at the time. He will be having breakfast soon when he awakens. Social work will continue to work on placement I presume today.
--- NOTE | 2022-07-01 12:40 | ED Physician Documentation ---
ED Addendum - Addendum Addendum: 07/01/22 12:38 I was called into the room at approximately 12:25 PM as the patient was unresponsive. He had agonal respirations, fairly normal pupils but no pulse. CPR was initiated while blood sugar was checked noted to be in the 150s. My partner at that time had pulled out his POLST form and he was noted to be DNR. CPR was discontinued. He had no pulse. By that point he had no more agonal respirations, no respirations at all, and was in cardiac standstill with bedside ultrasound. Time of 12:35 PM on July 01, 2022 07/01/22 12:40 I called and spoke with the daughter who plans to present to the emergency department.
[2022-07-01] MEDS: PROPRANOLOL 40 MG TABLET PO SCH (13:04)
== END 2022-07-01 12:35 | disposition expired ==
LOC: EDUNIT# → EDBD → ED 21:34
DX: F03.918 Unspecified dementia, unspecified severity, with other behavioral disturbance (principal); Z20.822 Contact with and (suspected) exposure to COVID-19; Z66 Do not resuscitate; Z78.1 Physical restraint status; Z76.4 Other boarder to healthcare facility; R53.1 Weakness; I10 Essential (primary) hypertension
CPT/HCPCS: 36415; 70450; 71045; 80048; 80053; 80306; 81003; 83690; 84443; 85025; 87633; 87635; 92950; 93005; 96372; 99284; 99285; A9270; G0425; G0480; J8499; Q3014; 80320; 81001; 87086